=== PATIENT | female | born 1935 | race Caucasian/White ===

== ENCOUNTER 2018-12-09 14:12 | Emergency (ER) | payer MEDICARE, OTHER ==
[~2018-12-09] VITALS: Ht 152.4 cm; Wt 68.2 kg
[~2018-12-09 14:12] MED LIST: CARI350T PO; CITA10TA10 PO; CLOP75TA27 PO; FENO48TA16 PO; FIORICET GTB; GLIM2TAB47 PO; ICNCLON PO; LEFL20TA18 PO; LORA-441 PO; METF-849 PO; NIFE90TA PO; PANT40TA3 PO; PIOG30TA12 PO; PRED5SOL PO; TML25OPG5 OP; ZOLP10TA PO; ranexa PO
[2018-12-09 14:19] VITALS: Ht 152.4 cm; Wt 68.2 kg
[2018-12-09] MEDS ORDERED: SOD CHLORIDE 0.9% 100 ML ONE (16:22)
[2018-12-09] MEDS ORDERED: IODIXANOL LOCM 100 ML BTL ONE (16:22)
[2018-12-09] MEDS ORDERED: SOD CHLORIDE 0.9% 1,000 ML IV ONE (16:30)
[2018-12-09] MEDS ORDERED: GLIM1TAB2 PO (16:38)
[2018-12-09] MEDS ORDERED: CLOP75TA19 PO (16:39)
[2018-12-09] MEDS ORDERED: PIOG30TA71 PO (16:39)
[2018-12-09] MEDS ORDERED: HYDR-3671 PO (16:40)
[2018-12-09] MEDS ORDERED: RANO500T2 PO (16:40)
[2018-12-09] MEDS ORDERED: LOSA100T3 PO (16:41)
[2018-12-09] MEDS ORDERED: NIFE90TA11 PO (16:43)
[2018-12-09] MEDS ORDERED: METO-448 PO (16:44)
[2018-12-09] MEDS ORDERED: PANT40TA3 PO (16:44)
[2018-12-09] MEDS ORDERED: DULO60CA6 PO (16:46)
[2018-12-09] MEDS ORDERED: ATOR40TA68 PO (16:46)
[2018-12-09] MEDS ORDERED: DOXA1TAB PO (16:53)
[2018-12-09] MEDS ORDERED: TYLENOL PM PO (16:57)
--- NOTE | 2018-12-09 18:29 | ERD ---
ER Documentation Chief Complaint Chief Complaint COUGH AND CONGESTION WITH SOB X 3 DAYS HPI This is an 83-year-old female with a past medical history of hypertension, hyperlipidemia, diabetes, right-sided carotid artery stenosis status post recent endarterectomy, and a rehab facility up until approximately 1 week ago who is now presenting with 3 days of productive cough of yellow sputum, chest and nasal congestion and reported shortness of breath. The patient has not had any chest pain or chest tightness or pleuritic pain. She has not had any wheezing, but the family is concerned that sometimes she seems very short of breath. The patient is currently calm and in no distress. She is oxygenating 100% on room air. The patient denies fever or chills. The patient has had no headache or vision changes. The patient does not endorse any new anterior or posterior neck or back pain. The patient denies lightheadedness or dizziness. The patient denies nausea or vomiting. The patient denies abdominal pain. The patient denies changes to bowel movements or urination. The patient has had no focal deficits. The patient has had no weakness or numbness or tingling to the face or extremities. ROS All systems reviewed and are negative except as per history of present illness. Medications Home Meds Reported Medications [Tylenol Pm ] No Conflict Check, 2 TAB PO QHS 12/09/18 Doxazosin Mesylate* (Doxazosin Mesylate*) Unknown Strength Tablet, 1 TAB PO DAILY, TAB 12/09/18 Duloxetine Hcl* (Cymbalta*) 60 Mg Capsule.dr, 60 MG PO DAILY, CAP 12/09/18 Atorvastatin* (Atorvastatin*) 40 Mg Tablet, 40 MG PO QHS, #30 TAB 12/09/18 Pantoprazole* (Protonix*) 40 Mg Tablet.dr, 40 MG PO BID, TAB 12/09/18 Metoprolol Tartrate* (Lopressor*) 25 Mg Tab, 25 MG PO BID, #60 TAB 12/09/18 Nifedipine* (Nifedipine ER*) 90 Mg Tablet.er, 90 MG PO DAILY, TAB 12/09/18 Losartan Potassium* (Cozaar*) 100 Mg Tablet, 100 MG PO DAILY, #30 TAB 12/09/18 Hydralazine Hcl* (Hydralazine Hcl*) 25 Mg Tab, 25 MG PO DAILY, #60 TAB 12/09/18 Ranolazine* (Ranexa*) 500 Mg Tab.sr.12h, 500 MG PO Q12, TAB 12/09/18 Clopidogrel Bisulfate* (Clopidogrel Bisulfate*) 75 Mg Tablet, 75 MG PO DAILY, #30 TAB 12/09/18 Pioglitazone Hcl* (Pioglitazone Hcl*) 30 Mg Tablet, 30 MG PO DAILY, TAB 12/09/18 Glimepiride* (Glimepiride*) 1 Mg Tablet, 1 MG PO WITH BREAKFAST, TAB 12/09/18 Discontinued Reported Medications Prednisone* (Prednisone* Liq) 5 Mg/5 Ml Solution, 5 MG PO 01/11/14 Leflunomide* (Leflunomide*) 20 Mg Tablet, 20 MG PO 01/11/14 Carisoprodol* (Soma*) 350 Mg Tablet, 350 MG PO HS 01/11/14 Timolol Maleate* (Timolol Maleate* Gel) 5 Ml Lis.gel, 5 ML OP 01/11/14 Lorazepam* (Ativan*) 0.5 Mg Tablet, 0.5 MG PO 01/11/14 Zolpidem Tartrate* (Ambien*) 10 Mg Tablet, 10 MG PO 01/11/14 Acetamin/Butalbital/Caffeine* (Fioricet*) 1 Tab Tab, 1 TAB GTB Q6, TAB 01/11/14 Nifedipine* (Procardia XL*) 90 Mg/Bottle Tab.osm.24, 90 MG PO DAILY 01/11/14 Citalopram Hydrobromide* (Celexa*) 10 Mg Tablet, 10 MG PO DAILY 01/11/14 Pioglitazone Hcl* (Actos*) 30 Mg Tablet, 30 MG PO DAILY 01/11/14 Pantoprazole* (Protonix*) 40 Mg Tablet.dr, 40 MG PO DAILY 01/11/14 Metformin* (Glucophage*) 500 Mg Tab, 500 MG PO BID, TAB 01/11/14 Glimepiride* (Amaryl*) 2 Mg Tablet, 2 MG PO BID 01/11/14 Clopidogrel Bisulfate (Clopidogrel) 75 Mg Tablet, 75 MG PO DAILY 01/11/14 Fenofibrate Nanocrystallized* (Tricor*) 48 Mg Tablet, 48 MG PO DAILY 01/11/14 [ranexa] No Conflict Check, 500 MG PO BID 01/11/14 Clonidine (Clonidine (Pediatric Compound)) 0.1 Mg/Ml Susp, 0.2 MG PO BID 01/11/14 [Unknown] No Conflict Check 09/11/09 Allergies Allergies: Coded Allergies: Penicillins (Unverified Allergy, Unknown, RASHES, 12/09/18) PMhx/Soc History of Surgery: No Anesthesia Reaction: No Hx Neurological Disorder: No Hx Respiratory Disorders: No Hx Cardiac Disorders: Yes (Hypertension, hyperlipidemia, diabetes, carotid artery stenosis status post recent endarterectomy 11) Hx Psychiatric Problems: No Hx Miscellaneous Medical Probl: Yes Hx Alcohol Use: No Hx Substance Use: No Hx Tobacco Use: No Smoking Status: Never smoker FmHx Family History: diabetes Physical Exam Vitals Vital Signs Date Temp Pulse Resp B/P (MAP) Pulse Ox O2 O2 Flow FiO2 Time Delivery Rate 12/09/18 Nasal 14:45 Cannula 12/09/18 98.4 64 20 158/52 98 Room Air 14:20 (87) 12/09/18 98.7 70 18 172/60 100 14:19 (97) Physical Exam Const: No apparent distress, well-developed, well-nourished Head: Normocephalic, Atraumatic Eyes: Normal Conjunctiva. Extraocular movements intact. Pupils equal, round and reactive to light ENT: Normal External Ears and Mouth. Nasal congestion is evident. Neck: Full range of motion. No meningismus. Right carotid endarterectomy scar. No thrill on auscultation. Resp: Clear to auscultation bilaterally, No wheezes, rales or rhonchi Cardio: Regular rate and rhythm. No murmurs, rubs or gallops Abd: Soft, non tender, non distended. Normal bowel sounds Skin: No petechiae or rashes Back: No midline tenderness. No CVA tenderness Ext: No cyanosis, or edema Neur: Awake and alert, oriented 4. Cranial nerves intact. No facial droop. Normal strength, sensation and coordination. Psych: Normal Mood and Affect Result Diagram: 12/09/18 1450 12/09/18 1450 Results 24 hrs Laboratory Tests Test 12/09/18 14:50 White Blood Count 9.1 10^3/ul Red Blood Count 3.03 10^6/ul Hemoglobin 9.2 g/dl Hematocrit 29.0 % Mean Corpuscular Volume 95.7 fl Mean Corpuscular Hemoglobin 30.4 pg Mean Corpuscular Hemoglobin Concent 31.7 g/dl Red Cell Distribution Width 14.3 % Platelet Count 311 10^3/UL Mean Platelet Volume 9.8 fl Immature Granulocytes % 1.500 % Neutrophils % 79.7 % Lymphocytes % 10.0 % Monocytes % 7.3 % Eosinophils % 1.1 % Basophils % 0.4 % Nucleated Red Blood Cells % 0.0 /100WBC Immature Granulocytes # 0.140 10^3/ul Neutrophils # 7.3 10^3/ul Lymphocytes # 0.9 10^3/ul Monocytes # 0.7 10^3/ul Eosinophils # 0.1 10^3/ul Basophils # 0.0 10^3/ul Nucleated Red Blood Cells # 0.0 10^3/ul Prothrombin Time 12.7 Sec Prothrombin Time Ratio 1.0 INR International Normalized Ratio 0.94 Sodium Level 139 mmol/L Potassium Level 5.4 mmol/L Chloride Level 107 mmol/L Carbon Dioxide Level 22 mmol/L Anion Gap 10 Blood Urea Nitrogen 38 mg/dl Creatinine 1.87 mg/dl Est Glomerular Filtrat Rate mL/min mL/min Glucose Level 180 mg/dl Calcium Level 9.3 mg/dl Troponin I < 0.012 ng/ml B-Type Natriuretic Peptide 950 PG/ML Current Medications Medications Dose Sig/[place] Start Time Status Last (Trade) Ordered Route PRN Stop Time Admin Dose Reason Admin Sodium 1,000 ml @ Q1H ONCE 12/09/18 DC 12/09/18 Chloride 1,000 mls/hr IV 16:30 17:31 12/09/18 17:29 IV Flush 10 ml STK-MED 12/09/18 DC (NS 10 ml) ONCE .ROUTE 16:22 12/09/18 16:23 Sodium 100 ml @ ud STK-MED 12/09/18 DC Chloride ONCE .ROUTE 16:22 12/09/18 16:23 Iodixanol 100 ml STK-MED 12/09/18 DC (Visipaque ONCE .ROUTE 16:22 Locm) 12/09/18 16:23 Procedures/MDM MDM The patient's presentation warrants further investigation. Previous medical records, if available, were reviewed. LABS The patient's laboratory testing was obtained and reviewed. No emergent treatment was required unless described below. CBC: No E/o systemic infection or thrombocytopenia. Mild normocytic anemia, not emergent. Chemistry: No E/o severe acidosis or alkalosis or diabetic ketoacidosis. Mild hyperkalemia, not emergent. Mildly elevated creatinine indicating mild acute on chronic kidney disease. PT/INR: No E/o significant coagulopathy Troponin: No E/o acute ischemia BNP: In an indeterminate range with no clinical suspicion for heart failure EKG EKG read by me: Rate/Rhythm: Regular rate and rhythm at a rate of 65 bpm Intervals: Normal [place]: Left axis deviation Impression: No evidence of acute ischemia or arrhythmia IMAGING Imaging and Radiology interpretation reviewed. CXR FINDINGS: The heart is enlarged. The thoracic aorta is calcified. The lungs are clear. There is no pleural effusion or pneumothorax. IMPRESSION: Mild cardiomegaly. Calcified aorta consistent with atherosclerotic disease. Electronically viewed and signed by .Dale Curtis MD, MD on 12/09/2018 15:02 CTA soft tissue neck 1. Status post right carotid endarterectomy with surgical clips and mild surrounding infiltration / scarring. Minimal effacement of the adjacent right lateral oropharynx. No associated collection to suggest a phlegmon or abscess. 2. No stenosis at the right carotid bulb. Minimal plaque right common carotid artery plaque without significant stenosis. Tortuous cervical right internal carotid artery. 3. Moderate plaque at the left carotid bulb with approximately 50% diameter stenosis, not hemodynamically significant. 4. Moderate atherosclerotic plaque throughout the aortic arch. 5. Degenerative changes of the cervical spine. 6. Heterogeneous thyroid gland with multiple complex cyst, recommend thyroid ultrasound when clinically appropriate. 7. Small air-fluid level in the right lin sphenoid sinus. Electronically viewed and signed by Jake Rosales MD, MD on 12/09/2018 17:59 TREATMENT/DISPOSITION The patient presents with symptoms most consistent with an upper respiratory infection. There is no evidence of pneumonia. I have low suspicion for influenza. The patient's vital signs are unremarkable. She is oxygenating well. She is afebrile. She is not tachypneic or tachycardic or hypoxic. She has no leukocytosis. I have low suspicion for a systemic infection. I do not feel the patient requires a septic workup. Given the patient's previous history, a cardiac workup was completed to evaluate for any possible etiologies of nasal, throat and chest congestion. The patient did have a recent carotid endarterectomy and I felt that it was necessary to evaluate her neck. The patient does have a mildly elevated creatinine indicating mild acute on chronic kidney disease. I did fluid resuscitate her, but I did feel that the CTA was important to obtain. Fortunately, the CT reveal ed scarring but no obvious soft tissue infection, phlegmon or abscess. I doubt an infection. There is no evidence of an acute postoperative complication. The patient's chest xray does not reveal pneumonia or pneumothorax or pleural effusions or pulmonary edema. The patient does not have a widened mediastinum and does not have signs or symptoms concerning for thoracic aortic aneurysm or dissection. The patient does not have pneumomediastinum or signs concerning for esophageal tear or rupture. The patient has no clinical or radiographic signs of pericardial effusion or tamponade. The patient does not have pneumoperitoneum and I have decreased suspicion of viscus perforation as possible referred pain. The patient's BNP is slightly elevated, but there is no clinical or radiographic evidence concerning for a congestive heart failure exacerbation. This is likely chronic and may be followed up by her doctor.. The patient does not have a diagnosis of COPD and is not wheezing today. The patient is not tachypneic or hypoxic. The patient is breathing comfortably and without pleuritic pain. The patient's symptoms are not consistent with pulmonary embolism PE. The patient's troponin and EKG are reassuring. I have low suspicion for acute coronary syndrome. The patient was treated with IV fluids in the emergency department. Upon reevaluation of the patient, symptoms have improved. No emergent diagnoses were identified. At this time, I feel that the patient stable for discharge. The patient was instructed to follow-up with a primary care physician in 1-3 days. The patient will be given strict precautions with which to return to the emergency department. Prescriptions: Tylenol The patient's blood pressure was elevated at greater than 120/80 while in the emergency department. The patient was otherwise stable with no evidence of hypertensive urgency or emergency. The patient does not require admission for blood pressure control. I have discussed with the patient the risks of hypertension. I have instructed the patient to return to the ER for any new or worsening symptoms including chest pain, shortness of breath, headache, blurred vision, confusion, nausea, vomiting or LOC. I have advised the patient to follow up with the primary care physician for outpatient monitoring and treatment for hypertension in 1-3 days. Disclaimer: Inadvertent spelling and grammatical errors are likely due to EHR/dictation software use and do not reflect on the overall quality of patient care. Note that the electronic time recorded on this note does not necessarily reflect the actual time of the patient encounter. Departure Diagnosis: Primary Impression: URI (upper respiratory infection) URI type: unspecified URI Qualified Codes: J06.9 - Acute upper respiratory infection, unspecified Additional Impressions: Cough Chest congestion Shortness of breath Normocytic anemia Hyperkalemia Acute kidney injury superimposed on chronic kidney disease Condition: Stable Patient Instructions: Cough, Chronic, Uncertain Cause, (Adult), Preventing Common Respiratory Infections Additional Instructions: Thank you for for coming to [facility] for your care today. Pl ease ask your nurse or provider if you have questions about your care today and do not leave until all your questions have been answered. Please use any medications given as directed and follow-up with your doctor (or the doctor you were referred to) in the next 1-3 days. If you do not have a primary care doctor you may follow up at the [facility] or [facility] clinic (listed below). You may also use motrin and tylenol as needed for fever and/or pain unless instructed otherwise by your provider or nurse. Indications for more urgent follow-up have been discussed, but you may return to the Emergency Department at ANY time for any worrisome or worsening symptoms. If you have abdominal pain, please know that no test or exam you received is perfect and you should follow up within 8 hours for continued pain. If you had any imaging studies today, such as an X-Ray or CT Scan, these studies will be reviewed later by a radiologist. You will be called if there are important findings that were not identified today, so make sure the contact information you provided at registration is correct. If you received any narcotic pain control medicine today, such as Vicodin, Morphine or Dilaudid, your coordination and judgment may be affected for a number of hours. Please do not drive or operate heavy machinery, and you may want someone to assist you at home. If you were given a prescription for narcotic medication, be aware that it is very addictive- use sparingly and only if necessary. PLEASE SEEK FURTHER EVALUATION AND MANAGEMENT AT YOUR DOCTORS OFFICE WITHIN THE NEXT 1-3 DAYS. IT IS YOUR RESPONSIBILITY TO MAKE AN APPOINTMENT FOR FOLOW-UP CARE. IF YOU HAVE A PRIMARY DOCTOR, PLEASE CALL THEIR OFFICE TO SCHEDULE AN APPOINTMENT FOR FOLLOW UP. IF YOU DO NOT HAVE A PRIMARY DOCTOR YOU CAN CALL OUR PHYSICIAN REFERRAL HOTLINE AT IF YOU CAN NOT AFFORD TO SEE A PHYSICIAN YOU CAN CHOSE FROM THE FOLLOWING [facility] CLINICS: [facility] [address] [facility] [address] [facility] [address] [facility] [address] [facility] [address] [facility] [address]. [facility]. [address] JAMILAH VIZCAINO MD Dec 09, 2018 18:27
[2018-12-09] MEDS ORDERED: ACET325T33 PO (18:30)
[2018-12-09] MEDS ORDERED: ALBU18HF INHALATION (21:34)
[2018-12-09] MEDS ORDERED: CEPH-443 PO (21:34)
[2018-12-09 22:00] VITALS: BP 174/71; PULSE 88; RESP 16
== END 2018-12-09 22:22 | disposition home or self-care (01) ==
LOC: E/R 14:12
DX: J06.9 Acute upper respiratory infection, unspecified (principal); R09.89 Other specified symptoms and signs involving the circulatory and respiratory systems; R06.02 Shortness of breath; D64.9 Anemia, unspecified; E87.5 Hyperkalemia; N17.9 Acute kidney failure, unspecified; I12.9 Hypertensive chronic kidney disease with stage 1 through stage 4 chronic kidney disease, or unspecified chronic kidney disease; N18.9 Chronic kidney disease, unspecified; E11.22 Type 2 diabetes mellitus with diabetic chronic kidney disease; Z79.84 Long term (current) use of oral hypoglycemic drugs; Z79.01 Long term (current) use of anticoagulants
CPT/HCPCS: 36415; 70498; 71045; 80048; 81003; 83880; 84484; 85025; 85610; 93005; 99285; J7030; Q9967

== ENCOUNTER 2018-12-18 08:34 | Inpatient (IN) | payer OTHER ==
[~2018-12-18] VITALS: Ht 160 cm; Wt 70.0 kg
[~2018-12-18 08:34] MED LIST changes: +ACET325T33 PO; +ALBU18HF INHALATION; +ATOR40TA68 PO; -CARI350T PO; +CEPH-443 PO; -CITA10TA10 PO; +CLOP75TA19 PO; -CLOP75TA27 PO; +DOXA1TAB PO; +DULO60CA6 PO; -FENO48TA16 PO; -FIORICET GTB; +GLIM1TAB2 PO; -GLIM2TAB47 PO; +HYDR-3671 PO; -ICNCLON PO; -LEFL20TA18 PO; -LORA-441 PO; +LOSA100T3 PO; -METF-849 PO; +METO-448 PO; -NIFE90TA PO; +NIFE90TA11 PO; -PIOG30TA12 PO; +PIOG30TA71 PO; -PRED5SOL PO; +RANO500T2 PO; -TML25OPG5 OP; +TYLENOL PM PO; -ZOLP10TA PO; -ranexa PO
--- NOTE | 2018-12-18 08:49 | ERD ---
ER Documentation Chief Complaint Chief Complaint HPI 83-year-old woman brought in by EMS from home for complaints of generalized weak ness, dysuria, chills, burning sensation with urination, and generalized weakness times 2 days. She was recently diagnosed with URI and UTI and prescribed cephalexin although it seems she had an allergic reaction to cephalexin and her antibiotic was switched to Bactrim which she has been using for the last few days without relief of her urinary symptoms. She has had no vomiting or diarrhea, no complaints of chest pain or shortness of breath, no headache or blurry vision. Patient was transported here by EMS without further complication ROS All systems reviewed and are negative except as per history of present illness. Medications Home Meds Active Scripts Albuterol Sulfate* (Ventolin HFA*) 18 Gm Hfa.aer.ad, 2 PUFF INHALATION Q4H, #1 I NHALER Prov:JAMILAH VARNER MD 12/09/18 Acetaminophen* (Tylenol*) 325 Mg Tablet, 1 TAB PO Q6 PRN for PAIN AND OR ELEVATED TEMP, #20 TAB Prov:JAMILAH VARNER MD 12/09/18 Reported Medications Sulfamethoxazole/Trimethoprim* (Bactrim Ds* Tablet) 1 Each Tablet, 1 TAB PO BID, TAB started 12-14-18 for 7 days 12/18/18 [Tylenol Pm ] No Conflict Check, 2 TAB PO QHS 12/09/18 Doxazosin Mesylate* (Doxazosin Mesylate*) Unknown Strength Tablet, 1 TAB PO DAILY, TAB 12/09/18 Duloxetine Hcl* (Cymbalta*) 60 Mg Capsule.dr, 60 MG PO DAILY, CAP 12/09/18 Atorvastatin* (Atorvastatin*) 40 Mg Tablet, 40 MG PO QHS, #30 TAB 12/09/18 Pantoprazole* (Protonix*) 40 Mg Tablet.dr, 40 MG PO BID, TAB 12/09/18 Metoprolol Tartrate* (Lopressor*) 25 Mg Tab, 25 MG PO BID, #60 TAB 12/09/18 Nifedipine* (Nifedipine ER*) 90 Mg Tablet.er, 90 MG PO DAILY, TAB 12/09/18 Losartan Potassium* (Cozaar*) 100 Mg Tablet, 100 MG PO DAILY, #30 TAB 12/09/18 Hydralazine Hcl* (Hydralazine Hcl*) 25 Mg Tab, 25 MG PO DAILY, #60 TAB 12/09/18 Ranolazine* (Ranexa*) 500 Mg Tab.sr.12h, 500 MG PO Q12, TAB 12/09/18 Clopidogrel Bisulfate* (Clopidogrel Bisulfate*) 75 Mg Tablet, 75 MG PO DAILY, #30 TAB 12/09/18 Pioglitazone Hcl* (Pioglitazone Hcl*) 30 Mg Tablet, 30 MG PO DAILY, TAB 12/09/18 Glimepiride* (Glimepiride*) 1 Mg Tablet, 1 MG PO WITH BREAKFAST, TAB 12/09/18 Discontinued Scripts Cephalexin* (Keflex*) 500 Mg Capsule, 500 MG PO BID for 7 Days, CAP Prov:JAMILAH VARNER MD 12/09/18 Allergies Allergies: Coded Allergies: Penicillins (Unverified Allergy, Unknown, RASHES, 12/18/18) cephalexin (Verified Allergy, Unknown, short of breath, 12/18/18) PMhx/Soc history of hypertension, hyperlipidemia, diabetes, right-sided carotid artery stenosis status post endarterectomy, asthma History of Surgery: No Anesthesia Reaction: No Hx Neurological Disorder: No Hx Respiratory Disorders: No Hx Cardiac Disorders: Yes Hx Psychiatric Problems: No Hx Miscellaneous Medical Probl: Yes Hx Alcohol Use: No Hx Substance Use: No Hx Tobacco Use: No FmHx Family History: No diabetes Physical Exam Vitals Vital Signs Date Temp Pulse Resp B/P (MAP) Pulse Ox O2 O2 Flow FiO2 Time Delivery Rate 12/18/18 97.9 100 22 145/99 98 Room Air 10:00 (114) 12/18/18 97.5 91 17 184/90 99 08:40 (121) Per nurse's records Physical Exam Const: No acute distress, afebrile Head: Atraumatic Eyes: Normal Conjunctiva ENT: Dry mucous membranes, normal External Ears, Nose and Mouth. Neck: Full range of motion. No meningismus. Resp: Clear to auscultation bilaterally Cardio: Regular rate and rhythm, no murmurs Abd: Soft, non tender, non distended. Normal bowel sounds Skin: No petechiae or rashes Back: No midline or flank tenderness Ext: No cyanosis, or edema Neur: Awake and alert x3, no focal deficits or facial asymmetry, pupils equal round reactive to light Psych: Normal Mood and Affect Result Diagram: 12/18/1892712/18/18927 Results 24 hrs Laboratory Tests Test 12/18/18 09:27 12/18/18 09:28 Urine Color YELLOW Urine Clarity CLEAR Urine pH 5.0 Urine Specific [place] 1.009 Urine Ketones NEGATIVE mg/dL Urine Nitrite NEGATIVE mg/dL Urine Bilirubin NEGATIVE mg/dL Urine Urobilinogen NEGATIVE mg/dL Urine Leukocyte Esterase NEGATIVE [place]/ul Urine Hemoglobin NEGATIVE mg/dL Urine Glucose NEGATIVE mg/dL Urine Total Protein NEGATIVE mg/dl White Blood Count 8.6 10^3/ul Red Blood Count 2.86 10^6/ul Hemoglobin 8.7 g/dl Hematocrit 28.2 % Mean Corpuscular Volume 98.6 fl Mean Corpuscular Hemoglobin 30.4 pg Mean Corpuscular Hemoglobin Concent 30.9 g/dl Red Cell Distribution Width 14.3 % Platelet Count 434 10^3/UL Mean Platelet Volume 9.2 fl Immature Granulocytes % 5.800 % Neutrophils % 64.1 % Lymphocytes % 16.8 % Monocytes % 9.1 % Eosinophils % 2.8 % Basophils % 1.4 % Nucleated Red Blood Cells % 0.0 /100WBC Immature Granulocytes # 0.500 10^3/ul Neutrophils # 5.5 10^3/ul Lymphocytes # 1.4 10^3/ul Monocytes # 0.8 10^3/ul Eosinophils # 0.2 10^3/ul Basophils # 0.1 10^3/ul Nucleated Red Blood Cells # 0.0 10^3/ul Sodium Level 137 mmol/L Potassium Level 5.0 mmol/L Chloride Level 104 mmol/L Carbon Dioxide Level 19 mmol/L Anion Gap 14 Blood Urea Nitrogen 39 mg/dl Creatinine 2.36 mg/dl Est Glomerular Filtrat Rate mL/min mL/min Glucose Level 99 mg/dl Calcium Level 9.5 mg/dl Total Bilirubin 0.2 mg/dl Direct Bilirubin 0.00 mg/dl Indirect Bilirubin 0.2 mg/dl Aspartate Amino Transf (AST/SGOT) 35 IU/L Alanine Aminotransferase (ALT/SGPT) 16 IU/L Alkaline Phosphatase 74 IU/L Troponin I 0.019 ng/ml Total Protein 7.6 g/dl Albumin 3.8 g/dl Globulin 3.80 g/dl Albumin/Globulin Ratio 1.00 Lipase 109 U/L Current Medications Medications Dose Sig/[place] Start Time Status Last (Trade) Ordered Route PRN Stop Time Admin Dose Reason Admin Sodium 1,000 ml @ Q1H STAT 12/18/18 DC 12/18/18 Chloride 1,000 mls/hr IV 08:51 10:25 12/18/18 09:50 Ondansetron 4 mg ONCE STAT 12/18/18 DC 12/18/18 HCl (Zofran IV 08:51 10:25 Inj) 12/18/18 09:12 Ketorolac 15 mg ONCE STAT 12/18/18 DC 12/18/18 Tromethamine IV 08:51 10:25 (Toradol) 12/18/18 09:12 Procedures/MDM IV line was established patient was placed on band presser rhythm strip revealed a sinus rhythm at about 90 bpm with upright P and T waves. Patient was afebrile, blood and urine cultures have been ordered results are pending I will follow-up. I administered 1 L normal saline IV, Toradol 15 mg IV, Zofran 4 mg IV EKG performed, read by me revealed a normal sinus rhythm at 90 bpm, normal axis, narrow QRS complex, no concerning ST elevations or depressions noted CBC does reveal anemia with a hemoglobin of 8.7 although this is pretty much her baseline, electrolytes revealed dehydration and acute kidney injury with a creatinine of 2.4, this is about 30% rise compared to her last creatinine level. Liver function tests were normal, troponin was negative, urinalysis was negative for infection. Unfortunately patient developed acute kidney injury and dehydration after antibiotic use for UTI and has complaints of dizziness and generalized weakness. She will be admitted to [facility] for continued medical management and possible nephrology consultation. Departure Diagnosis: Primary Impression: Dysuria Additional Impressions: Dehydration Hypertension Hypertension type: essential hypertension Qualified Codes: I10 - Essential (primary) hypertension Acute kidney injury Condition: ZABRINA Armenta MD Dec 18, 2018 08:49
[2018-12-18] MEDS ORDERED: SOD CHLORIDE 0.9% 1,000 ML IV STA (08:51)
[2018-12-18] MEDS ORDERED: KETOROLAC 15 MG INJ IV STA (08:51)
[2018-12-18] MEDS ORDERED: ONDANSETRON 4 MG INJ IV STA (08:51)
[2018-12-18] MEDS ORDERED: SULF1TAB31 PO (09:34)
[2018-12-18] MEDS ORDERED: NACL 0.9% 3 ML SYG IV SCH (12:30)
[2018-12-18] MEDS: ONDANSETRON 4 MG INJ IV PRN ×2 (14:14→21:17)
[2018-12-18] MEDS: morphine 2 MG INJ IV PRN ×2 (14:25→21:24)
[2018-12-18] MEDS: POLYETHYLENE GLYCOL 17 GM PACKET PO SCH ×2 (14:40→21:51)
--- NOTE | 2018-12-18 18:27 | HP ---
Date/Time of Note Date/Time of Note DATE: 12/18/18 TIME: 18:14 Assessment/Plan VTE Prophylaxis Pharmacological prophylaxis: heparin Lines/Catheters IV Catheter Type (from Nrsg): Saline Lock Assessment/Plan Hospital Course 83 yo female with h/o CEA, CKD II, hypertension who presents with vague sypmtoms of nausea and feeling unwell No clear unifying diagonsis. - She is in very mild ANGEL which I assume is prerenal. - CT shows constipation which may explain her nausea - Certainly polypharmacy may be causing this presentation - Will provide symptomatic care for now - Hold non-essential home medications Result Diagram: 12/18/1892712/18/18927 Results 24hrs Laboratory Tests Test 12/18/18 09:27 12/18/18 09:28 12/18/18 14:07 12/18/18 16:50 Urine Color YELLOW Urine Clarity CLEAR Urine pH 5.0 Urine Specific 1.009 [place] Urine Ketones NEGATIVE Urine Nitrite NEGATIVE Urine Bilirubin NEGATIVE Urine Urobilinogen NEGATIVE Urine Leukocyte NEGATIVE Esterase Urine Hemoglobin NEGATIVE Urine Glucose NEGATIVE Urine Total Protein NEGATIVE White Blood Count 8.6 Red Blood Count 2.86 L Hemoglobin 8.7 L Hematocrit 28.2 L Mean Corpuscular 98.6 Volume Mean Corpuscular 30.4 Hemoglobin Mean Corpuscular 30.9 L Hemoglobin Concent Red Cell 14.3 Distribution Width Platelet Count 434 #H Mean Platelet Volume 9.2 Immature 5.800 H Granulocytes % Neutrophils % 64.1 Lymphocytes % 16.8 Monocytes % 9.1 Eosinophils % 2.8 Basophils % 1.4 Nucleated Red Blood 0.0 Cells % Immature 0.500 H Granulocytes # Neutrophils # 5.5 Lymphocytes # 1.4 Monocytes # 0.8 Eosinophils # 0.2 Basophils # 0.1 Nucleated Red Blood 0.0 Cells # Sodium Level 137 Potassium Level 5.0 Chloride Level 104 Carbon Dioxide Level 19 L Anion Gap 14 H Blood Urea Nitrogen 39 H Creatinine 2.36 H Est Glomerular Filtrat Rate mL/min Glucose Level 99 Calcium Level 9.5 Total Bilirubin 0.2 Direct Bilirubin 0.00 Indirect Bilirubin 0.2 Aspartate Amino 35 Transf (AST/SGOT) Alanine 16 Aminotransferase (AL T/SGPT) Alkaline Phosphatase 74 Troponin I 0.019 0.031 Total Protein 7.6 Albumin 3.8 Globulin 3.80 H Albumin/Globulin 1.00 Ratio Lipase 109 Bedside Glucose 129 HPI/ROS Admit Date/Time Admit Date/Time Hx of Present Illness 83 yo female with CKD, depression, hypertension, CAD who presents with nausea and malaise Patient is a difficult historian and it is hard for me to ellicit her exact symptoms. Keeps telling me she just "doesn't feel well" but can't really point to anything specific. She had a CEA last month then was discharged to a rehab facility. She has been home for past week or so. Since then she has been treated for UTI for dysuria with bactrim and keflex by her PMD in past week. Denies any dysuria now. No fevers. She does feel nausea and has had little PO intake. Denies vomiting or diarrhea. Denies abdominal pain. Does feel a bit short of breath. No chest pain. No cough. PMH/Family/Social Past Medical History Medical History: coronary artery disease, hypertension, renal disease Medications Current Medications IV Flush (NS 3 ml) 3 ml PER PROTOCOL IV ; Start 12/18/18 at 12:30 Ondansetron HCl (Zofran Inj) 4 mg Q6H PRN IV NAUSEA/VOMITING Last administered on 12/18/18at 14:14; Admin Dose 4 MG; Start 12/18/18 at 12:30 Morphine Sulfate (morphine) 2 mg Q4H PRN IV .SEVERE PAIN 7-10 Last administered on 12/18/18at 14:25; Admin Dose 2 MG; Start 12/18/18 at 12:30 Heparin Sodium (Porcine) (Heparin (5000 Units/1ml)) 5,000 unit Q12 SC ; Start 12/18/18 at 21:00 Clopidogrel Bisulfate (plaVIX) 75 mg DAILY PO ; Start 12/19/18 at 09:00 Duloxetine HCl (Cymbalta) 60 mg DAILY PO ; Start 12/19/18 at 09:00 Metoprolol Tartrate (Lopressor) 25 mg BID PO ; Start 12/18/18 at 21:00 Polyethylene Glycol (Miralax) 17 gm BID PO Last administered on 12/18/18at 14:40; Admin Dose 17 GM; Start 12/18/18 at 14:00 Coded Allergies: Penicillins (Unverified Allergy, Unknown, RASHES, 12/18/18) cephalexin (Verified Allergy, Unknown, short of breath, 12/18/18) Past Surgical History CEA Social History Alcohol Use: none Smoking Status: Never smoker Drug Use: none Exam/Review of Systems Vital Signs Vitals Vital Signs Date Temp Pulse Resp B/P (MAP) Pulse Ox O2 O2 Flow FiO2 Time Delivery Rate 12/18/18 98.2 97 16 187/71 96 Room Air 17:38 (109) Exam Exam Appears to be rigoring AOx3 Breathing comfortably RRR Abdomen is soft nt nd Ext warm without edema NANCI GUTIERREZ MD Dec 18, 2018 18:24
[2018-12-18] MEDS ORDERED: DEXTROSE 50% 50 ML SYRINGE IV PRN ×2 (19:00)
[2018-12-18] MEDS ORDERED: GLUCOSE GEL 15 GRAM TUBE BUCCAL PRN (19:00)
[2018-12-18] MEDS ORDERED: GLUCAGON 1 MG INJ IM PRN (19:00)
[2018-12-18] MEDS ORDERED: LABETALOL HCL 20MG INJ IV ONE (19:00)
[2018-12-18] MEDS ORDERED: GLUCOSE GEL 15 GRAM TUBE PO PRN ×2 (19:00)
[2018-12-18] MEDS: INSULIN GLARGINE [LANTus] (100 UNITS/ML) SYG SC SCH (20:00)
[2018-12-18] MEDS: METOPROLOL 25 MG TAB PO SCH (21:51)
[2018-12-18] MEDS: HEPARIN 5,000 UNIT/1 ML VIAL SC SCH (21:53)
[2018-12-18] MEDS ORDERED: LORAZEPAM 2 MG INJ IV STA (22:46)
[2018-12-18] MEDS ORDERED: ALPRAZOLAM 0.25 MG TAB PO ONE (23:00)
[2018-12-18] MEDS ORDERED: ALPRAZOLAM 0.5 MG TAB PO ONE (23:00)
[2018-12-19] VITALS (8 sets, daily range): BP systolic 105–216; BP diastolic 55–95; PULSE 67–92; RESP 16–19; Ht 160 cm; Wt 70.0 kg
[2018-12-19] MEDS: CLOPIDOGREL 75 MG TAB PO SCH (08:55)
[2018-12-19] MEDS: DULOXETINE 30 MG CAP DR PO SCH (08:55)
[2018-12-19] MEDS: Insulin NOVOLOG SS MILD Algorithm (SS with meals and bedtime) SC SCH ×4 (08:55→21:10)
[2018-12-19] MEDS: METOPROLOL 25 MG TAB PO SCH ×2 (08:56→21:08)
[2018-12-19] MEDS: POLYETHYLENE GLYCOL 17 GM PACKET PO SCH ×2 (08:56→21:05)
[2018-12-19] MEDS: INSULIN ASPART [NOVOLOG] 3 ML PEN SC SCH ×3 (08:58→17:50)
[2018-12-19] MEDS: HEPARIN 5,000 UNIT/1 ML VIAL SC SCH ×2 (08:59→21:10)
--- NOTE | 2018-12-19 17:14 | PN ---
Date/Time of Note Date/Time of Note DATE: 12/19/18 TIME: 17:13 Assessment/Plan VTE Prophylaxis Risk score (from Ns)>0 risk: 7 SCD applied (from Ns): Yes Pharmacological prophylaxis: heparin Lines/Catheters IV Catheter Type (from Nrs): Saline Lock Assessment/Plan Hospital Course 83 yo female with h/o CEA, CKD II, hypertension who presents with vague sypmtoms of nausea and feeling unwell No clear unifying diagnosis, but symptoms have resolved - Certainly polypharmacy may be causing this presentation ANGEL: - She is in very mild ANGEL which I assume is prerenal, now back to baseline Constipation: - CT shows constipation which may explain her nausea Hypertension: - Home meds at discharge Knee pain 11/03 OA: - Continue symptomatic care Discharge to home tomorrow Result Diagram: 12/19/18 1215 12/19/18 1215 Results 24hrs Laboratory Tests Test 12/18/18 19:37 12/19/18 04:52 12/19/18 08:53 12/19/18 12:15 Bedside Glucose 110 79 White Blood Count 7.9 8.4 Red Blood Count 2.65 L 3.15 L Hemoglobin 8.1 L 9.5 L Hematocrit 25.6 L 30.3 L Mean Corpuscular 96.6 96.2 Volume Mean Corpuscular 30.6 30.2 Hemoglobin Mean Corpuscular 31.6 L 31.4 L Hemoglobin Concent Red Cell 14.4 14.3 Distribution Width Platelet Count 378 448 H Mean Platelet Volume 9.1 8.9 Immature 5.700 H 4.300 H Granulocytes % Neutrophils % 66.1 Segmented 69 Neutrophils % (Manual) Lymphocytes % 17.3 Lymphocytes % 21 (Manual) Monocytes % 8.8 Monocytes % (Manual) 6 Eosinophils % 1.9 Eosinophils % 2 (Manual) Basophils % 1.6 Metamyelocytes % 1 H (manual) Myelocytes % 1 H (Manual) Nucleated Red Blood 0.0 0.0 Cells % Immature 0.450 H 0.360 H Granulocytes # Neutrophils # 5.5 Lymphocytes (Manual) 1.6 Lymphocytes # 1.5 Monocytes # 0.7 Monocytes # (Manual) 0.4 Eosinophils # 0.2 Basophils # 0.1 Metamyelocytes # 0.0 Myelocytes # 0.0 Nucleated Red Blood 0.0 Cells # Platelet Estimate NORMAL Giant Platelets 2 H Polychromasia 1+ Poikilocytosis 1+ Macrocytosis 1+ Ovalocytes 1+ Sodium Level 139 138 Potassium Level 5.3 H 5.5 H Chloride Level 106 108 Carbon Dioxide Level 20 L 21 Anion Gap 13 9 Blood Urea Nitrogen 30 H 28 H Creatinine 1.90 H 1.80 H Est Glomerular Filtrat Rate mL/min Glucose Level 78 122 # Hemoglobin A1c 6.8 H Calcium Level 9.2 9.7 Total Bilirubin 0.1 L Direct Bilirubin 0.00 Indirect Bilirubin 0.1 Aspartate Amino 31 Transf (AST/SGOT) Alanine 19 Aminotransferase (AL T/SGPT) Alkaline Phosphatase 78 Total Protein 6.6 # Albumin 3.3 Globulin 3.30 H Albumin/Globulin 1.00 Ratio Thyroid Stimulating 1.570 Hormone (TSH) Test 12/19/18 12:35 Bedside Glucose 128 Subjective 24 Hr Interval Summary Free Text/Dictation Symptoms resolved today aside from R knee pain Having very labile blood pressures Exam/Review of Systems Exam Vitals Vital Signs Date Temp Pulse Resp B/P (MAP) Pulse Ox O2 O2 Flow FiO2 Time Delivery Rate 12/19/18 98.6 82 18 130/58 98 16:00 (82) 12/19/18 Nasal 2.0 08:45 Cannula Constitutional: alert, oriented, well developed Psych: no complaints, nl mood/affect Head: normocephalic, atraumatic Eyes: nl conjunctiva, EOMI, nl lids, nl sclera, PERRL ENMT: nl external ears & nose, nl lips & teeth, nl nasal mucosa & septum Neck: supple, non-tender Respiratory: clear to auscultation, normal air movement Cardiovascular: regular rate and rhythm, nl pulses Gastrointestinal: soft, nl liver, spleen, non-tender Musculoskeletal: nl extremities to inspection, nl gait and stance Extremities: normal pulses Neurological: PERSONAL FINANCIAL REPRESENTATIVE II-XII intact, nl mental status, nl speech, nl strength Skin: nl turgor; No rash or lesions Lymph: nl lymph nodes Results Results 24hrs Laboratory Tests Test 12/18/18 19:37 12/19/18 04:52 12/19/18 08:53 12/19/18 12:15 Bedside Glucose 110 79 White Blood Count 7.9 8.4 Red Blood Count 2.65 L 3.15 L Hemoglobin 8.1 L 9.5 L Hematocrit 25.6 L 30.3 L Mean Corpuscular 96.6 96.2 Volume Mean Corpuscular 30.6 30.2 Hemoglobin Mean Corpuscular 31.6 L 31.4 L Hemoglobin Concent Red Cell 14.4 14.3 Distribution Width Platelet Count 378 448 H Mean Platelet Volume 9.1 8.9 Immature 5.700 H 4.300 H Granulocytes % Neutrophils % 66.1 Segmented 69 Neutrophils % (Manual) Lymphocytes % 17.3 Lymphocytes % 21 (Manual) Monocytes % 8.8 Monocytes % (Manual) 6 Eosinophils % 1.9 Eosinophils % 2 (Manual) Basophils % 1.6 Metamyelocytes % 1 H (manual) Myelocytes % 1 H (Manual) Nucleated Red Blood 0.0 0.0 Cells % Immature 0.450 H 0.360 H Granulocytes # Neutrophils # 5.5 Lymphocytes (Manual) 1.6 Lymphocytes # 1.5 Monocytes # 0.7 Monocytes # (Manual) 0.4 Eosinophils # 0.2 Basophils # 0.1 Metamyelocytes # 0.0 Myelocytes # 0.0 Nucleated Red Blood 0.0 Cells # Platelet Estimate NORMAL Giant Platelets 2 H Polychromasia 1+ Poikilocytosis 1+ Macrocytosis 1+ Ovalocytes 1+ Sodium Level 139 138 Potassium Level 5.3 H 5.5 H Chloride Level 106 108 Carbon Dioxide Level 20 L 21 Anion Gap 13 9 Blood Urea Nitrogen 30 H 28 H Creatinine 1.90 H 1.80 H Est Glomerular Filtrat Rate mL/min Glucose Level 78 122 # Hemoglobin A1c 6.8 H Calcium Level 9.2 9.7 Total Bilirubin 0.1 L Direct Bilirubin 0.00 Indirect Bilirubin 0.1 Aspartate Amino 31 Transf (AST/SGOT) Alanine 19 Aminotransferase (AL T/SGPT) Alkaline Phosphatase 78 Total Protein 6.6 # Albumin 3.3 Globulin 3.30 H Albumin/Globulin 1.00 Ratio Thyroid Stimulating 1.570 Hormone (TSH) Test 12/19/18 12:35 Bedside Glucose 128 Medications Medication Current Medications IV Flush (NS 3 ml) 3 ml PER PROTOCOL IV ; Start 12/18/18 at 12:30 Ondansetron HCl (Zofran Inj) 4 mg Q6H PRN IV NAUSEA/VOMITING Last administered on 12/18/18at 21:17; Admin Dose 4 MG; Start 12/18/18 at 12:30 Morphine Sulfate (morphine) 2 mg Q4H PRN IV .SEVERE PAIN 7-10 Last administered on 12/18/18 21:24; Admin Dose 2 MG; Start 12/18/18 at 12:30 Heparin Sodium (Porcine) (Heparin (5000 Units/1ml)) 5,000 unit Q12 SC Last administered on 12/19/18 08:59; Admin Dose 5,000 UNIT; Start 12/18/18 at 21:00 Clopidogrel Bisulfate (plaVIX) 75 mg DAILY PO Last administered on 12/19/18 08:55; Admin Dose 75 MG; Start 12/19/18 at 09:00 Duloxetine HCl (Cymbalta) 60 mg DAILY PO Last administered on 12/19/18 08:55; Admin Dose 60 MG; Start 12/19/18 at 09:00 Metoprolol Tartrate (Lopressor) 25 mg BID PO Last administered on 12/19/18 08:56; Admin Dose 25 MG; Start 12/18/18 at 21:00 Polyethylene Glycol (Miralax) 17 gm BID PO Last administered on 12/19/18 08:56; Admin Dose 17 GM; Start 12/18/18 at 14:00 Insulin Glargine (Lantus) 11 units DAILY@2000 SC ; Start 12/18/18 at 20:00 Insulin Aspart (Novolog Insulin Pen) 5 unit WITH MEALS SC Last administered on 12/19/18at 12:40; Admin Dose 5 UNIT; Start 12/19/18 at 07:50 Miscellaneous Information 1 ea NOTE XX ; Start 12/18/18 at 19:00 Glucose (Glutose) 15 gm Q15M PRN PO DECREASED GLUCOSE; Start 12/18/18 at 19:00 Glucose (Glutose) 22.5 gm Q15M PRN PO DECREASED GLUCOSE; Start 12/18/18 at 19:00 Dextrose (D50w Syringe) 25 ml Q15M PRN IV DECREASED GLUCOSE; Start 12/18/18 at 19:00 Dextrose (D50w Syringe) 50 ml Q15M PRN IV DECREASED GLUCOSE; Start 12/18/18 at 19:00 Glucagon (Glucagen) 1 mg Q15M PRN IM DECREASED GLUCOSE; Start 12/18/18 at 19:00 Glucose (Glutose) 15 gm Q15M PRN BUCCAL DECREASED GLUCOSE; Start 12/18/18 at 19:00 Insulin Aspart (Novolog Insulin Pen) (Adult SC Insulin - Mild Algorithm)... AC MEALS AND BEDTIME SC ; Start 12/19/18 at 07:20 NANCI GUTIERREZ MD Dec 19, 2018 17:14
[2018-12-19] MEDS ORDERED: LORAZEPAM 1 MG TAB PO ONE (19:00)
[2018-12-19] MEDS: INSULIN GLARGINE [LANTus] (100 UNITS/ML) SYG SC SCH (21:10)
[2018-12-19] MEDS ORDERED: VITAMIN A & D 5 GM OINT PACKET TOP PRN (22:30)
[2018-12-19] MEDS: morphine 2 MG INJ IV PRN (22:54)
[2018-12-20] MEDS: morphine 2 MG INJ IV PRN (03:09)
[2018-12-20] MEDS ORDERED: BISACODYL (EC) 5 MG TAB PO PRN (04:00)
[2018-12-20] MEDS: DOCUSATE SODIUM 100 MG CAP PO PRN ×2 (04:33→20:17)
[2018-12-20] MEDS: SENNA TAB PO PRN ×2 (04:34→20:17)
[2018-12-20] MEDS: METOPROLOL 25 MG TAB PO SCH ×2 (07:28→20:17)
[2018-12-20 07:44] VITALS: BP 152/68; PULSE 66; RESP 19
[2018-12-20] MEDS: Insulin NOVOLOG SS MILD Algorithm (SS with meals and bedtime) SC SCH ×4 (08:30→20:14)
[2018-12-20] MEDS: INSULIN ASPART [NOVOLOG] 3 ML PEN SC SCH ×3 (09:26→18:31)
[2018-12-20] MEDS: POLYETHYLENE GLYCOL 17 GM PACKET PO SCH ×2 (09:26→20:17)
[2018-12-20] MEDS: CLOPIDOGREL 75 MG TAB PO SCH (09:27)
[2018-12-20] MEDS: DULOXETINE 30 MG CAP DR PO SCH (09:27)
[2018-12-20] MEDS: HEPARIN 5,000 UNIT/1 ML VIAL SC SCH ×2 (09:27→20:22)
--- NOTE | 2018-12-20 12:33 | PDOCDIS ---
Discharge Instructions DIAGNOSIS Discharge Diagnosis Nausea ANGEL CONDITION [id number] Patient Condition: [id number] Stable FOLLOW UP/APPOINTMENTS Follow-up Plan I think it would be a good idea to scale back some of your medications. Please see the list I have provided you and discuss these changes with your doctor. I think some of your sypmtoms may be caused by medications, particularly your severe constipation NANCI GUTIERREZ MD Dec 20, 2018 12:33
--- NOTE | 2018-12-20 12:41 | DS ---
Date/Time of Note Date/Time of Note DATE: 12/20/18 TIME: 12:40 Discharge Summary Admission/Discharge Info Admit Date/Time Dec 18, 2018 at 11:13 Discharge Date/Time Discharge Diagnosis Nausea ANGEL Patient Condition: Stable Hx of Present Illness 83 yo female with CKD, depression, hypertension, CAD who presents with nausea and malaise Patient is a difficult historian and it is hard for me to ellicit her exact symptoms. Keeps telling me she just "doesn't feel well" but can't really point to anything specific. She had a CEA last month then was discharged to a rehab facility. She has been home for past week or so. Since then she has been treated for UTI for dysuria with bactrim and keflex by her PMD in past week. Denies any dysuria now. No fevers. She does feel nausea and has had little PO intake. Denies vomiting or diarrhea. Denies abdominal pain. Does feel a bit short of breath. No chest pain. No cough. Hospital Course 83 yo female with h/o CEA, CKD II, hypertension who presents with vague sypmtoms of nausea and feeling unwell No clear unifying diagnosis. CT of the abdomen revealed constipation. Laxatives were given. Symptosm resolved. She was given a liter of NS and her ANGEL resolved. I held some of her blood pressure medications and she remained normotnesive. I suspect some of her meds are causing her symptoms and suggested she talk about this with her primary doctor. Home Meds Active Scripts Albuterol Sulfate* (Ventolin HFA*) 18 Gm Hfa.aer.ad, 2 PUFF INHALATION Q4H, #1 INHALER Prov:JAMILAH VARNER MD 12/09/18 Acetaminophen* (Tylenol*) 325 Mg Tablet, 1 TAB PO Q6 PRN for PAIN AND OR ELEVATED TEMP, #20 TAB Prov:JAMILAH VARNER MD 12/09/18 Reported Medications Sulfamethoxazole/Trimethoprim* (Bactrim Ds* Tablet) 1 Each Tablet, 1 TAB PO BID, TAB started 12-14-18 for 7 days 12/18/18 [Tylenol Pm ] No Conflict Check, 2 TAB PO QHS 12/09/18 Doxazosin Mesylate* (Doxazosin Mesylate*) Unknown Strength Tablet, 1 TAB PO DAILY, TAB 12/09/18 Duloxetine Hcl* (Cymbalta*) 60 Mg Capsule.dr, 60 MG PO DAILY, CAP 12/09/18 Atorvastatin* (Atorvastatin*) 40 Mg Tablet, 40 MG PO QHS, #30 TAB 12/09/18 Pantoprazole* (Protonix*) 40 Mg Tablet.dr, 40 MG PO BID, TAB 12/09/18 Metoprolol Tartrate* (Lopressor*) 25 Mg Tab, 25 MG PO BID, #60 TAB 12/09/18 Nifedipine* (Nifedipine ER*) 90 Mg Tablet.er, 90 MG PO DAILY, TAB 12/09/18 Losartan Potassium* (Cozaar*) 100 Mg Tablet, 100 MG PO DAILY, #30 TAB 12/09/18 Hydralazine Hcl* (Hydralazine Hcl*) 25 Mg Tab, 25 MG PO DAILY, #60 TAB 12/09/18 Ranolazine* (Ranexa*) 500 Mg Tab.sr.12h, 500 MG PO Q12, TAB 12/09/18 Clopidogrel Bisulfate* (Clopidogrel Bisulfate*) 75 Mg Tablet, 75 MG PO DAILY, #30 TAB 12/09/18 Pioglitazone Hcl* (Pioglitazone Hcl*) 30 Mg Tablet, 30 MG PO DAILY, TAB 12/09/18 Glimepiride* (Glimepiride*) 1 Mg Tablet, 1 MG PO WITH BREAKFAST, TAB 12/09/18 Discontinued Scripts Cephalexin* (Keflex*) 500 Mg Capsule, 500 MG PO BID for 7 Days, CAP Prov:JAMILAH VARNER MD 12/09/18 Follow-up Plan I think it would be a good idea to scale back some of your medications. Please see the list I have provided you and discuss these changes with your doctor. I think some of your sypmtoms may be caused by medications, particularly your severe constipation Primary Care Provider Not On Staff Doctor Pending Labs Laboratory Tests Test 12/19/18 17:48 12/19/18 21:04 12/20/18 08:48 Bedside Glucose 259 mg/dL (70-220) 193 mg/dL (70-220) 61 mg/dL (70-220) NANCI GUTIERREZ MD Dec 20, 2018 12:41
[2018-12-20 13:44] VITALS: BP 132/58; PULSE 64; RESP 19
[2018-12-20] MEDS ORDERED: LORAZEPAM 1 MG TAB PO PRN (18:00)
[2018-12-20 20:30] VITALS: BP 138/63; PULSE 72; RESP 18
[2018-12-21] MEDS: DOCUSATE SODIUM 100 MG CAP PO PRN (04:41)
[2018-12-21] MEDS: SENNA TAB PO PRN (04:41)
[2018-12-21] MEDS ORDERED: hydrALAzine 20 MG INJ IV PRN (05:00)
[2018-12-21] MEDS: morphine 2 MG INJ IV PRN (06:55)
[2018-12-21] MEDS ORDERED: LORAZEPAM 2 MG INJ IV STA (07:05)
[2018-12-21 07:32] VITALS: BP 131/56; PULSE 68; RESP 19
[2018-12-21] MEDS: POLYETHYLENE GLYCOL 17 GM PACKET PO SCH (09:00)
[2018-12-21] MEDS: Insulin NOVOLOG SS MILD Algorithm (SS with meals and bedtime) SC SCH ×2 (09:26→11:10)
[2018-12-21] MEDS: HEPARIN 5,000 UNIT/1 ML VIAL SC SCH (09:28)
[2018-12-21] MEDS: CLOPIDOGREL 75 MG TAB PO SCH (09:30)
[2018-12-21] MEDS: INSULIN ASPART [NOVOLOG] 3 ML PEN SC SCH ×2 (09:30→12:55)
[2018-12-21] MEDS: DULOXETINE 30 MG CAP DR PO SCH (09:31)
[2018-12-21] MEDS: METOPROLOL 25 MG TAB PO SCH (09:41)
[2018-12-21 14:18] VITALS: BP 136/62; PULSE 88; RESP 18
== END 2018-12-21 15:15 | disposition home or self-care (01) | DRG 684 ==
LOC: E/R 08:34 → MS1 11:13 → CANRESERV 18:24
PROVIDERS: ADMIT Internal Medicine; ATTEND Internal Medicine
DX: N17.9 Acute kidney failure, unspecified (principal); I12.9 Hypertensive chronic kidney disease with stage 1 through stage 4 chronic kidney disease, or unspecified chronic kidney disease; N18.2 Chronic kidney disease, stage 2 (mild); K59.00 Constipation, unspecified; R11.0 Nausea; I25.10 Atherosclerotic heart disease of native coronary artery without angina pectoris; M17.10 Unilateral primary osteoarthritis, unspecified knee
CPT/HCPCS: 36415; 71045; 74176; 80048; 80053; 81003; 82962; 83036; 83690; 84443; 84484; 85025; 87040; 87086; 93005; 96374; 96375; A4310; J0360; J1644; J1815; J1885; J2060; J2270; J2405; J7030

== ENCOUNTER 2018-12-22 02:47 | Inpatient (IN) | payer OTHER ==
[~2018-12-22] VITALS: Ht 157.5 cm; Wt 84.0 kg
[~2018-12-22 02:47] MED LIST changes: -ATOR40TA68 PO; -CEPH-443 PO; -DOXA1TAB PO; -HYDR-3671 PO; -METO-448 PO; -NIFE90TA11 PO
[2018-12-22] MEDS ORDERED: SOD CHLORIDE 0.9% 1,000 ML IV STA (02:51)
[2018-12-22] MEDS ORDERED: IODIXANOL LOCM 100 ML BTL ONE (02:59)
[2018-12-22] MEDS ORDERED: SOD CHLORIDE 0.9% 100 ML ONE (02:59)
[2018-12-22] MEDS ORDERED: LORAZEPAM 2 MG INJ IV ONE (03:00)
[2018-12-22] MEDS ORDERED: NA BICARBONATE 8.4% 50 ML SYG IV STA (03:41)
[2018-12-22] MEDS ORDERED: SODIUM POLYSTYRENE 15 GM KIT (POWDER + SORBITOL) PO STA (03:41)
[2018-12-22] MEDS ORDERED: NA POLYST SULFON 15 GM/60 ML BTL PO ONE (03:50)
[2018-12-22] MEDS ORDERED: CALCIUM GLUCONATE 10% 1 GM in DEXTROSE 5% 100 ML IVPB ONE (04:00)
[2018-12-22] MEDS ORDERED: ALBUTEROL HFA 8 GM INHALER INH SCH (05:45)
[2018-12-22] MEDS ORDERED: SOD CHLORIDE 0.9% 1,000 ML IV SCH (05:46)
[2018-12-22] MEDS ORDERED: NACL 0.9% 3 ML SYG IV SCH (06:00)
[2018-12-22] MEDS ORDERED: ONDANSETRON 4 MG INJ IV PRN (06:00)
[2018-12-22] MEDS ORDERED: ACETAMINOPHEN 325 MG TAB PO PRN (06:00)
--- NOTE | 2018-12-22 06:22 | ERD ---
ER Documentation Chief Complaint Chief Complaint SOB FROM HOME. HX OF ANXIETY. HPI 83-year-old female who presents for shortness of breath via EMS. Patient had a recent hospitalization for similar symptoms, mild renal insufficiency and shortness of breath that was deemed to be consistent with anxiety. The patient was started on benzodiazepines with improvement. The patient presents with similar symptoms. She was only discharged within the past 24 hours. Patient denies any chest pain or pressure, no pleuritic pain. The patient denies any significant lower extremity swelling or unilateral swelling. The patient is extremely anxious. ROS All systems reviewed and are negative except as per history of present illness. Medications Home Meds Active Scripts Albuterol Sulfate* (Ventolin HFA*) 18 Gm Hfa.aer.ad, 2 PUFF INHALATION Q4H, #1 INHALER Prov:JAMILAH VARNER MD 12/09/18 Acetaminophen* (Tylenol*) 325 Mg Tablet, 1 TAB PO Q6 PRN for PAIN AND OR ELEVATED TEMP, #20 TAB Prov:JAMILAH VARNER MD 12/09/18 Reported Medications [Tylenol Pm ] No Conflict Check, 2 TAB PO QHS 12/09/18 Duloxetine Hcl* (Cymbalta*) 60 Mg Capsule.dr, 60 MG PO DAILY, CAP 12/09/18 Pantoprazole* (Protonix*) 40 Mg Tablet.dr, 40 MG PO BID, TAB 12/09/18 Losartan Potassium* (Cozaar*) 100 Mg Tablet, 100 MG PO DAILY, #30 TAB 12/09/18 Ranolazine* (Ranexa*) 500 Mg Tab.sr.12h, 500 MG PO Q12, TAB 12/09/18 Clopidogrel Bisulfate* (Clopidogrel Bisulfate*) 75 Mg Tablet, 75 MG PO DAILY, #30 TAB 12/09/18 Pioglitazone Hcl* (Pioglitazone Hcl*) 30 Mg Tablet, 30 MG PO DAILY, TAB 12/09/18 Glimepiride* (Glimepiride*) 1 Mg Tablet, 1 MG PO WITH BREAKFAST, TAB 12/09/18 Discontinued Reported Medications Sulfamethoxazole/Trimethoprim* (Bactrim Ds* Tablet) 1 Each Tablet, 1 TAB PO BID, TAB started 12-14-18 for 7 days 12/18/18 Doxazosin Mesylate* (Doxazosin Mesylate*) Unknown Strength Tablet, 1 TAB PO DAILY, TAB 12/09/18 Atorvastatin* (Atorvastatin*) 40 Mg Tablet, 40 MG PO QHS, #30 TAB 12/09/18 Metoprolol Tartrate* (Lopressor*) 25 Mg Tab, 25 MG PO BID, #60 TAB 12/09/18 Nifedipine* (Nifedipine ER*) 90 Mg Tablet.er, 90 MG PO DAILY, TAB 12/09/18 Hydralazine Hcl* (Hydralazine Hcl*) 25 Mg Tab, 25 MG PO DAILY, #60 TAB 12/09/18 Discontinued Scripts Cephalexin* (Keflex*) 500 Mg Capsule, 500 MG PO BID for 7 Days, CAP Prov:JAMILAH VARNER MD 12/09/18 Allergies Allergies: Coded Allergies: Penicillins (Unverified Allergy, Unknown, RASHES, 12/22/18) cephalexin (Verified Allergy, Unknown, short of breath, 12/22/18) PMhx/Soc History of Surgery: Yes (CAROTID ARTERY SX) Anesthesia Reaction: No Hx Neurological Disorder: Yes (HX MINI STROKE (UNKNOWN DATE)) Hx Respiratory Disorders: No Hx Cardiac Disorders: Yes (HTN, STROKE) Hx Psychiatric Problems: No Hx Miscellaneous Medical Probl: Yes (ANXIETY) Hx Alcohol Use: No Hx Substance Use: No Hx Tobacco Use: No Smoking Status: Never smoker FmHx Family History: No diabetes Physical Exam Vitals Vital Signs Date Temp Pulse Resp B/P (MAP) Pulse Ox O2 O2 Flow FiO2 Time Delivery Rate 12/22/18 93 20 156/67 100 Nasal 2.0 05:23 (96) Cannula 12/22/18 93 30 159/63 100 Nasal 2.0 04:12 (95) Cannula 12/22/18 Nasal 2 02:55 Cannula 12/22/18 99.3 114 22 131/55 100 02:50 (80) Physical Exam General: Extremely anxious, talking in full sentences Head: Normocephalic, atraumatic. Eyes: Pupils equally reactive, EOM intact ENT: Moist mucous membranes Neck: Supple, no lymphadenopathy Respiratory: Clear bilaterally without evidence of respiratory distress Cardiovascular: Slight tachycardia, no murmurs, rubs, or gallops Abdominal: Soft, non-tender, non-distended, no peritoneal signs : Deferred MSK: No edema, no unilateral swelling, 5/5 strength Neurologic: Alert and oriented, moving all extremities, normal speech, no focal weakness, no cerebellar signs Skin: No rash Psych: Anxious Result Diagram: 12/22/18 0308 12/22/18 0308 Results 24 hrs Laboratory Tests Test 12/22/18 03:08 White Blood Count 11.2 10^3/ul Red Blood Count 3.05 10^6/ul Hemoglobin 9.3 g/dl Hematocrit 29.1 % Mean Corpuscular Volume 95.4 fl Mean Corpuscular Hemoglobin 30.5 pg Mean Corpuscular Hemoglobin Concent 32.0 g/dl Red Cell Distribution Width 14.2 % Platelet Count 467 10^3/UL Mean Platelet Volume 8.7 fl Immature Granulocytes % 4.700 % Neutrophils % 70.6 % Lymphocytes % 13.3 % Monocytes % 9.1 % Eosinophils % 1.3 % Basophils % 1.0 % Nucleated Red Blood Cells % 0.0 /100WBC Immature Granulocytes # 0.530 10^3/ul Neutrophils # 7.9 10^3/ul Lymphocytes # 1.5 10^3/ul Monocytes # 1.0 10^3/ul Eosinophils # 0.2 10^3/ul Basophils # 0.1 10^3/ul Nucleated Red Blood Cells # 0.0 10^3/ul Prothrombin Time 12.6 Sec Prothrombin Time Ratio 1.0 INR International Normalized Ratio 0.93 Activated Partial Thromboplast Time 27.6 Sec Sodium Level 134 mmol/L Potassium Level 6.1 mmol/L Chloride Level 103 mmol/L Carbon Dioxide Level 18 mmol/L Anion Gap 13 Blood Urea Nitrogen 45 mg/dl Creatinine 2.67 mg/dl Est Glomerular Filtrat Rate mL/min mL/min Glucose Level 190 mg/dl Calcium Level 9.6 mg/dl Troponin I 0.039 ng/ml Current Medications Medications Dose Sig/[place] Start Time Status Last (Trade) Ordered Route PRN Stop Time Admin Dose Reason Admin Sodium 1,000 ml @ Q1H STAT 12/22/18 DC 12/22/18 Chloride 1,000 mls/hr IV 02:51 03:15 12/22/18 03:50 Lorazepam 0.5 mg ONCE ONCE 12/22/18 DC 12/22/18 (Ativan) IV 03:00 03:15 12/22/18 03:01 IV Flush 10 ml STK-MED 12/22/18 DC (NS 10 ml) ONCE .ROUTE 02:59 12/22/18 03:00 Sodium 100 ml @ ud STK-MED 12/22/18 DC Chloride ONCE .ROUTE 02:59 12/22/18 03:00 Iodixanol 100 ml STK-MED 12/22/18 DC (Visipaque ONCE .ROUTE 02:59 Locm) 12/22/18 03:00 Sodium 30 gm ONCE STAT 12/22/18 Cancel Polystyrene PO 03:41 Sulfonate 12/22/18 03:42 (Kayexelate 15 Gm Kit (Powder+Sorbi ivet)) Sodium 50 ml ONCE STAT 12/22/18 DC 12/22/18 Bicarbonate IV 03:41 03:51 (Na Bicarb 12/22/18 03:43 8.4% Syg) Calcium 110 ml @ ONCE ONCE 12/22/18 DC 12/22/18 Gluconate 1 110 mls/hr IVPB 04:00 03:58 gm/Dextrose 12/22/18 04:59 Sodium 30 gm ONCE ONCE 12/22/18 DC 12/22/18 Polystyrene PO 03:50 06:12 Sulfonate 12/22/18 03:51 (Kayexalate) Sodium 1,000 ml @ [id number] IV 12/22/18 Chloride 60 mls/hr 05:46 12/22/18 22:25 IV Flush 3 ml PER 12/22/18 (NS 3 ml) PROTOCOL IV 06:00 Ondansetron 4 mg Q6H PRN 12/22/18 HCl (Zofran IV 06:00 Inj) NAUSEA/VOMITI NG 650 mg Q6H PRN 12/22/18 Acetaminophen PO .PAIN 1-3 06:00 (Tylenol OR TEMP Tab) Albuterol 2 puff Q4H RESP 12/22/18 (Ventolin THERAPY INH 05:45 Hfa) Clopidogrel 75 mg DAILY PO 12/22/18 Bisulfate 09:00 (plaVIX) Procedures/MDM EKG, MONITORS, & DIAGNOSTIC IMAGING: EKG: I reviewed and interpreted a 12-lead EKG. Rhythm: Sinus tachycardia ST Changes: No contiguous ST segment elevations T waves: No contiguous T wave inversions Impression: [No evidence of acute cardiac ischemia] Chest x-ray: I reviewed and interpreted a 1 view of the chest Mediastinum: No enlargement Cardiac silhouette: No cardiomegaly Airspace: Clear lung pardo bilaterally without evidence of pneumothorax Bones: No evidence of fracture LAB INTERPRETATION: I reviewed the laboratory testing and it shows acute renal insufficiency with hyperkalemia MEDICAL DECISION MAKING: The patient's shortness of breath seems very consistent with anxiety. The patient is very worked up and anxious. I have a lower clinical concern for pulmonary embolism however initially I ordered a CTPA put the patient's c reatinine is elevated. Given my low pretest probability for PE I do not believe CTPA is indicated. The patient can be worked up on an inpatient as needed if the symptoms do not improve. The patient shortness of breath improved with a small dose of benzodiazepine. However, the patient is also noted to have acute renal insufficiency with hyperkalemia. No EKG changes. Possibly secondary to mild dehydration. This is similar to recent hospitalization and the patient warrants repeat hospitalization for further investigation. ER COURSE: * Patient given anxiolysis with improved symptoms. * Patient treated with Kayexalate, bicarbonate, calcium. * The patient remains hemodynamically stable will be admitted for further management. CONSULTATION: [None] DISPOSITION PLAN: Telemetry Accepting care team and consultations: I discussed the current laboratory data, diagnostic imaging and emergency care provided. Admitting team: Dr. Matthews Admitting team indication: Insurance directed Departure Diagnosis: Primary Impression: Shortness of breath Additional Impressions: Anxiety Acute renal insufficiency Hyperkalemia Condition: Stable ERI ROBLEDO MD Dec 22, 2018 06:22
[2018-12-22] MEDS: CLOPIDOGREL 75 MG TAB PO SCH (09:00)
[2018-12-22] MEDS ORDERED: HYDROCODONE/APAP (5/325) TAB PO PRN (10:00)
[2018-12-22 13:22] VITALS: PULSE 91
[2018-12-22 13:31] VITALS: BP 178/75; PULSE 86; RESP 18
[2018-12-22] MEDS ORDERED: GLUCOSE GEL 15 GRAM TUBE BUCCAL PRN (14:00)
[2018-12-22] MEDS ORDERED: GLUCAGON 1 MG INJ IM PRN (14:00)
[2018-12-22] MEDS ORDERED: GLUCOSE GEL 15 GRAM TUBE PO PRN ×2 (14:00)
[2018-12-22] MEDS ORDERED: DEXTROSE 50% 50 ML SYRINGE IV PRN ×2 (14:00)
[2018-12-22] MEDS ORDERED: SODIUM CHLORIDE 0.45% 500 ML BAG IV* ONE (14:00)
[2018-12-22 14:11] VITALS: Ht 157.5 cm; Wt 84.0 kg
[2018-12-22 15:02] VITALS: BP 152/67; PULSE 101; RESP 18
[2018-12-22] MEDS ORDERED: LORAZEPAM 2 MG INJ IV PRN (16:00)
--- NOTE | 2018-12-22 16:00 | HP ---
Date/Time of Note Date/Time of Note DATE: 12/22/18 TIME: 15:55 Assessment/Plan VTE Prophylaxis Pharmacological prophylaxis: heparin Lines/Catheters IV Catheter Type (from [facility]): Peripheral IV Urinary Cath still in place: No Assessment/Plan Hospital Course 83-year-old female with CKD 3, diabetes type 2, CAD, status post carotid e ndarterectomy, and hypertension as well as anxiety and panic attacks who presents with episodes of panic and shortness of breath I again suspect that her symptoms are due to acute panic attacks for which we can continue to give benzodiazepines as needed. However we will do a thorough workup to rule out organic causes of shortness of breath. Her chest x-ray is clear so I doubt there is any CHF occurring. Certainly no wheezing on exam to suspect COPD. Her d-dimer is elevated and I would like to perform a CT angiogram however her creatinine is also elevated so we will pursue a VQ scan. Duplex is negative for DVT CAD: - Continue plavix Hypertension: - Continue home medications Anxiety: - Ativan PRN CKD III with ANGEL: - Gentle fluid challenge Anemia of CKD - Stable Arthritis of knee - stable, analgesics PRN PT/OT Discharge folloiwng workup Result Diagram: 12/22/18 0308 12/22/18 0308 Results 24hrs Laboratory Tests Test 12/22/18 03:08 12/22/18 08:57 White Blood Count 11.2 #H Red Blood Count 3.05 L Hemoglobin 9.3 L Hematocrit 29.1 L Mean Corpuscular Volume 95.4 Mean Corpuscular Hemoglobin 30.5 Mean Corpuscular Hemoglobin Concent 32.0 Red Cell Distribution Width 14.2 Platelet Count 467 H Mean Platelet Volume 8.7 Immature Granulocytes % 4.700 H Neutrophils % 70.6 Lymphocytes % 13.3 L Monocytes % 9.1 Eosinophils % 1.3 Basophils % 1.0 Nucleated Red Blood Cells % 0.0 Immature Granulocytes # 0.530 H Neutrophils # 7.9 H Lymphocytes # 1.5 Monocytes # 1.0 H Eosinophils # 0.2 Basophils # 0.1 Nucleated Red Blood Cells # 0.0 Prothrombin Time 12.6 Prothrombin Time Ratio 1.0 INR International Normalized Ratio 0.93 Activated Partial Thromboplast Time 27.6 D-Dimer 2065.43 H D-Dimer Comment Sodium Level 134 L Potassium Level 6.1 *H Chloride Level 103 Carbon Dioxide Level 18 L Anion Gap 13 Blood Urea Nitrogen 45 H Creatinine 2.67 H Est Glomerular Filtrat Rate mL/min Glucose Level 190 Calcium Level 9.6 Troponin I 0.039 0.052 Creatine Kinase 82 Creatine Kinase Index 2.5 Creatinine Kinase MB (Mass) 2.02 HPI/ROS Admit Date/Time Admit Date/Time Dec 22, 2018 at 05:48 Hx of Present Illness 83 yo female with CKD III, anemia, CAD, hypertension, DMII returns with anxiety and SOB Patient was discharged yesterday by me. She had been admitted for vague symp toms of nausea and found to be quite constipated. During her admission she had episodes of panic attacks during which she became tremulous very tearful and complained of shortness of breath. On numerous occasions I had to do deep breathing with exercises with her to try to calm down as well as administer Ativan. Apparently she went home yesterday and developed similar symptoms of acute panic with shortness of breath and return to the hospital. When I see her now she is very tearful saying she does not feel well feels like she cannot breathe. Her daughter is at the bedside who reports her mother has had lots of stress and anxiety lately. She believes the symptoms are psychosomatic. Citlaly arently this all started after she had a carotid endarterectomy a month ago and has not seemed to get back to herself since then ROS Constitutional: no complaints, improved Eyes: no complaints ENT: no complaints Respiratory: no complaints Cardiovascular: no complaints Gastrointestinal: no complaints Genitourinary: no complaints Musculoskeletal: no complaints Skin: no complaints Neurologic: no complaints Endocrine: no complaints Lymphatic: no complaints Psychological: no complaints, nl mood/affect Immunologic: no complaints PMH/Family/Social Past Medical History Medical History: coronary artery disease, diabetes, renal disease Medications Current Medications Sodium Chloride 1,000 ml @ 60 mls/hr [id number] IV Last administered on 12/22/18at 06:44; Admin Dose 60 MLS/HR; Start 12/22/18 at 05:46; Stop 12/22/18 at 22:25 IV Flush (NS 3 ml) 3 ml PER PROTOCOL IV ; Start 12/22/18 at 06:00 Ondansetron HCl (Zofran Inj) 4 mg Q6H PRN IV NAUSEA/VOMITING; Start 12/22/18 at 06:00 Acetaminophen (Tylenol Tab) 650 mg Q6H PRN PO .PAIN 1-3 OR TEMP; Start 12/22/18 at 06:00 Albuterol (Ventolin Hfa) 2 puff Q4H RESP THERAPY INH ; Start 12/22/18 at 05:45 Clopidogrel Bisulfate (plaVIX) 75 mg DAILY PO ; Start 12/22/18 at 09:00 Acetaminophen/ Hydrocodone Bitart ([place] (5/325)) 2 tab Q6H PRN PO .SEVERE PAIN 7-10; Start 12/22/18 at 10:00 Heparin Sodium (Porcine) (Heparin (5000 Units/1ml)) 5,000 unit Q12 SC ; Start 12/22/18 at 21:00 Duloxetine HCl (Cymbalta) 60 mg DAILY PO ; Start 12/23/18 at 09:00 Pantoprazole (Protonix Tab) 40 mg BID@0600,1800 PO ; Start 12/22/18 at 18:00 Ranolazine (Ranexa) 500 mg Q12 PO ; Start 12/22/18 at 21:00 Insulin Glargine (Lantus) 8 units DAILY@2000 SC ; Start 12/22/18 at 20:00 Insulin Aspart (Novolog Insulin Pen) NOVOLOG *MODERATE* ALGORITHM WITH MEALS BEDTIME SC ; Start 12/22/18 at 17:55 Miscellaneous Information 1 ea NOTE XX ; Start 12/22/18 at 14:00 Glucose (Glutose) 15 gm Q15M PRN PO DECREASED GLUCOSE; Start 12/22/18 at 14:00 Glucose (Glutose) 22.5 gm Q15M PRN PO DECREASED GLUCOSE; Start 12/22/18 at 14:00 Dextrose (D50w Syringe) 25 ml Q15M PRN IV DECREASED GLUCOSE; Start 12/22/18 at 14:00 Dextrose (D50w Syringe) 50 ml Q15M PRN IV DECREASED GLUCOSE; Start 12/22/18 at 14:00 Glucagon (Glucagen) 1 mg Q15M PRN IM DECREASED GLUCOSE; Start 12/22/18 at 14:00 Glucose (Glutose) 15 gm Q15M PRN BUCCAL DECREASED GLUCOSE; Start 12/22/18 at 14:00 Coded Allergies: Penicillins (Unverified Allergy, Unknown, RASHES, 12/22/18) cephalexin (Verified Allergy, Unknown, short of breath, 12/22/18) Past Surgical History Past Surgical Hx: no surgical history Family History Significant Family History: no pertinent family hx Social History Alcohol Use: none Smoking Status: Never smoker Drug Use: none Exam/Review of Systems Vital Signs Vitals Vital Signs Date Temp Pulse Resp B/P (MAP) Pulse Ox O2 O2 Flow FiO2 Time Delivery Rate 12/22/18 97.5 101 18 152/67 100 Nasal 15:02 (95) Cannula 12/22/18 2.0 13:00 Exam Constitutional: alert, oriented, well developed Psych: no complaints, nl mood/affect Head: normocephalic, atraumatic Eyes: nl conjunctiva, EOMI, nl lids, nl sclera, PERRL ENMT: nl external ears & nose, nl lips & teeth, nl nasal mucosa & septum Neck: supple, non-tender Respiratory: clear to auscultation, normal air movement Cardiovascular: regular rate and rhythm, nl pulses Gastrointestinal: soft, nl liver, spleen, non-tender Musculoskeletal: nl extremities to inspection Extremities: normal pulses Neurological: CRIS[employer] HE[employer] THERAPIST II-XII intact, nl mental status, nl speech, nl strength Skin: nl turgor; No rash or lesions Lymph: nl lymph nodes NANCI GUTIERREZ MD Dec 22, 2018 16:00
[2018-12-22 16:01] VITALS: PULSE 107
--- NOTE | 2018-12-22 16:56 | RADRPT ---
Echocardiogram Report Patient Name: DEMARCO DAVISPatient ID: [id number] : [id number] (83y 7m)Study Date: 12/22/2018 1:51:03 PM Gender: FAccession #: [id number] Tech: OllieBo ТАТЬЯНА Location: [facility] Ref.Physician: NANCI GUTIERREZ Height(Cm): BSA: Weight(Kg): Quality: AdequateAccount #: Procedures: Echocardiographic Report: Transthoracic echocardiogram with complete 2D, M-Mode, and doppler examination. Indications: Congestive Heart Failure. Measurements: 2D/M Mode Doppler Measurement Value Normal Range Measurement Value Normal Range LVIDd 2D 4.7 [ 3.8 - 5.2 ] cm AV Peak Martir 1.4 [ 100.0 - 170.0 ] cm/se c LVIDs 2D 3.0 [ 2.2 - 3.5 ] cm AV Peak PG 8.0 [ 2.0 - 9.0 ] mmHg LVPWd 2D 0.9 [ 0.6 - 0.9 ] cm LVOT Peak Martir 1.0 [ 70.0 - 110.0 ] cm/sec IVSd 2D 0.7 [ 0.6 - 0.9 ] cm LVOT Peak PG 4.0 [ 2.0 - 6.0 ] mmHg AoR Diam 2D 2.7 [ 2.3 - 3.1 ] cm MV E Peak Martir 1.3 [ 60.0 - 130.0 ] cm/sec EDV 2D 103.0 [ 46.0 - 106.0 ] ml MV A Peak Martir 0.4 [ 100.0 - 120.0 ] cm/se c ESV 2D 34.2 [ 14.0 - 42.0 ] ml MV E/A 3.6 [ 0.8 - 1.5 ] ratio EF 2D 66.8 [ 54.0 - 74.0 ] percent MV PHT 42.0 [ 20.0 - 100.0 ] msec LA Dimen 2D 2.6 [ 2.7 - 3.8 ] cm MV Decel Time 144 [ 104 - 258 ] msec MV Decel [place] 9 Lat E` Martir 0.1 [ 10.0 - 15.0 ] cm/sec Lateral E/E` 20.6 [ 1.0 - 2.0 ] ratio MV E/A 3.6 [ 0.8 - 1.5 ] ratio MVA PHT 5.2 [ 2.0 - 4.0 ] cm2 Findings: Left Ventricle: Normal left ventricular systolic function. Normal left ventricular cavity size. Normal left ventricular wall thickness. Ejection fraction is visually estimated at 55-60 %. Right Ventricle: Normal right ventricular size. Normal right ventricular systolic function. Left Atrium: The left atrium is normal in size. Right Atrium: The right atrium is normal in size. Atrial Septum: Normal atrial septum. Ventricular septum: Normal/intact ventricular septum. Mitral Valve: Normal appearance of the mitral valve. Trace mitral regurgitation. Aortic Valve: Normal appearance of the aortic valve. No aortic regurgitation. Tricuspid Valve: Normal appearance of the tricuspid valve. There is trace tricuspid regurgitation. Pulmonic Valve: Normal pulmonic valve appearance. No evidence of pulmonic regurgitation. Pericardium: Normal pericardium with no significant pericardial effusion. Aorta: Normal aortic root. IVC: Normal size and normal respiratory collapse consistent with normal right atrial pressure. Conclusions: Normal left ventricular systolic function. Normal left ventricular cavity size. Normal left ventricular wall thickness. Ejection fraction is visually estimated at 55-60 %. Normal appearance of the tricuspid valve. There is trace tricuspid regurgitation. Normal appearance of the mitral valve. Trace mitral regurgitation. Electronically Signed By: Ramírez Ching 2018-12-22 16:56:00 PDT
[2018-12-22] MEDS: INSULIN ASPART [NOVOLOG] 3 ML PEN SC SCH ×2 (17:03→20:25)
[2018-12-22] MEDS: PANTOPRAZOLE (EC) 40 MG TAB PO SCH (18:23)
[2018-12-22 20:00] VITALS: BP 145/67; PULSE 110; PULSE 112; RESP 20
[2018-12-22] MEDS ORDERED: INSULIN GLARGINE [LANTus] (100 UNITS/ML) SYG SC SCH (20:00)
[2018-12-22] MEDS: HEPARIN 5,000 UNIT/1 ML VIAL SC SCH (20:34)
[2018-12-22] MEDS: RANOLAZINE (SR) 500 MG TAB PO SCH (21:00)
[2018-12-23] VITALS (10 sets, daily range): BP systolic 130–167; BP diastolic 59–75; PULSE 93–114; RESP 18–20
[2018-12-23] MEDS: PANTOPRAZOLE (EC) 40 MG TAB PO SCH ×2 (06:43→17:28)
[2018-12-23] MEDS: INSULIN ASPART [NOVOLOG] 3 ML PEN SC SCH ×4 (07:55→20:43)
[2018-12-23] MEDS: CLOPIDOGREL 75 MG TAB PO SCH (08:45)
[2018-12-23] MEDS: RANOLAZINE (SR) 500 MG TAB PO SCH ×2 (08:45→20:35)
[2018-12-23] MEDS: DULOXETINE 30 MG CAP DR PO SCH (08:45)
[2018-12-23] MEDS: HEPARIN 5,000 UNIT/1 ML VIAL SC SCH ×2 (08:56→20:43)
--- NOTE | 2018-12-23 14:53 | DS ---
Date/Time of Note Date/Time of Note DATE: 12/23/18 TIME: 14:51 Discharge Summary Admission/Discharge Info Admit Date/Time Dec 22, 2018 at 05:48 Discharge Date/Time Discharge Diagnosis Anixety Shortenss of breath CKD III Anemia Patient Condition: Stable Hx of Present Illness 83 yo female with CKD III, anemia, CAD, hypertension, DMII returns with anxiety and SOB Patient was discharged yesterday by me. She had been admitted for vague symptoms of nausea and found to be quite constipated. During her admission she had episodes of panic attacks during which she became tremulous very tearful and complained of shortness of breath. On numerous occasions I had to do deep breathing with exercises with her to try to calm down as well as administer Ativan. Apparently she went home yesterday and developed similar symptoms of acute panic with shortness of breath and return to the hospital. When I see her now she is very tearful saying she does not feel well feels like she cannot johanny athe. Her daughter is at the bedside who reports her mother has had lots of stress and anxiety lately. She believes the symptoms are psychosomatic. Apparently this all started after she had a carotid endarterectomy a month ago and has not seemed to get back to herself since then Hospital Course 83-year-old female with CKD 3, diabetes type 2, CAD, status post carotid endarterectomy, and hypertension as well as anxiety and panic attacks who presents with episodes of panic and shortness of breath I again suspect that her symptoms are due to acute panic attacks for which we can continue to give benzodiazepines as needed. However we will do a thorough workup to rule out organic causes of shortness of breath. Her chest x-ray was clear so I doubt there is any CHF occurring. Certainly no wheezing on exam to suspect COPD. Her d-dimer was elevated but venous duplex was negative and V/Q scan was low probability. TTE showed normal cardiac function I discussed with the patient and her daughter than her symptoms are most likely psychiatric and she is safe for discharge and follow up with PMD Home Meds Active Scripts Albuterol Sulfate* (Ventolin HFA*) 18 Gm Hfa.aer.ad, 2 PUFF INHALATION Q4H, #1 INHALER Prov:JAMILAH VARNER MD 12/09/18 Acetaminophen* (Tylenol*) 325 Mg Tablet, 1 TAB PO Q6 PRN for PAIN AND OR ELEVATED TEMP, #20 TAB Prov:JAMILAH VARNER MD 12/09/18 Reported Medications [Tylenol Pm ] No Conflict Check, 2 TAB PO QHS 12/09/18 Duloxetine Hcl* (Cymbalta*) 60 Mg Capsule.dr, 60 MG PO DAILY, CAP 12/09/18 Pantoprazole* (Protonix*) 40 Mg Tablet.dr, 40 MG PO BID, TAB 12/09/18 Losartan Potassium* (Cozaar*) 100 Mg Tablet, 100 MG PO DAILY, #30 TAB 12/09/18 Ranolazine* (Ranexa*) 500 Mg Tab.sr.12h, 500 MG PO Q12, TAB 12/09/18 Clopidogrel Bisulfate* (Clopidogrel Bisulfate*) 75 Mg Tablet, 75 MG PO DAILY, #30 TAB 12/09/18 Pioglitazone Hcl* (Pioglitazone Hcl*) 30 Mg Tablet, 30 MG PO DAILY, TAB 12/09/18 Glimepiride* (Glimepiride*) 1 Mg Tablet, 1 MG PO WITH BREAKFAST, TAB 12/09/18 Discontinued Reported Medications Sulfamethoxazole/Trimethoprim* (Bactrim Ds* Tablet) 1 Each Tablet, 1 TAB PO BID, TAB started 12-14-18 for 7 days 12/18/18 Doxazosin Mesylate* (Doxazosin Mesylate*) Unknown Strength Tablet, 1 TAB PO DAILY, TAB 12/09/18 Atorvastatin* (Atorvastatin*) 40 Mg Tablet, 40 MG PO QHS, #30 TAB 12/09/18 Metoprolol Tartrate* (Lopressor*) 25 Mg Tab, 25 MG PO BID, #60 TAB 12/09/18 Nifedipine* (Nifedipine ER*) 90 Mg Tablet.er, 90 MG PO DAILY, TAB 12/09/18 Hydralazine Hcl* (Hydralazine Hcl*) 25 Mg Tab, 25 MG PO DAILY, #60 TAB 12/09/18 Discontinued Scripts Cephalexin* (Keflex*) 500 Mg Capsule, 500 MG PO BID for 7 Days, CAP Prov:JAMILAH VARNER MD 12/09/18 Primary Care Provider Not On Staff Doctor Pending Labs Laboratory Tests Test 12/22/18 16:58 12/22/18 20:16 12/23/18 06:04 12/23/18 07:36 Bedside 128 112 54 Glucose mg/dL (70-220) mg/dL (70-220) mg/dL (70-220) White Blood 7.9 Count 10^3/ul (4.8-1 0.8) Red Blood 2.47 Count 10^6/ul (4.20- 5.40) Hemoglobin 7.6 g/dl (12.0-16. 0) Hematocrit 24.1 % (37.0-47.0) Mean 97.6 Corpuscular fl (82.0-101.0 Volume ) Mean 30.8 Corpuscular pg (29.0-33.0) Hemoglobin Mean 31.5 Corpuscular g/dl (32.0-37. Hemoglobin Conc 0) ent Red Cell 14.6 Distribution % (11.5-14.5) Width Platelet Count 381 10^3/UL (140-4 15) Mean Platelet 9.1 Volume fl (7.4-10.4) Immature 3.700 Granulocytes % % (0.001-0.429 ) Neutrophils % 66.0 % (39.0-77.0) Lymphocytes % 17.1 % (15.0-51.0) Monocytes % 9.7 % (0.0-11.0) Eosinophils % 2.5 % (0.0-7.0) Basophils % 1.0 % (0.0-2.0) Nucleated Red 0.0 Blood Cells % /100WBC (0.0-0 .0) Immature 0.290 Granulocytes # 10^3/ul (0.0-0 .031) Neutrophils # 5.2 10^3/ul (1.6-7 .5) Lymphocytes # 1.4 10^3/ul (0.8-2 .9) Monocytes # 0.8 10^3/ul (0.3-0 .9) Eosinophils # 0.2 10^3/ul (0.0-0 .5) Basophils # 0.1 10^3/ul (0.0-0 .1) Nucleated Red 0.0 Blood Cells # 10^3/ul (0.0-0 .0) Sodium Level 140 mmol/L (135-14 4) Potassium 4.0 Level mmol/L (3.5-5. 1) Chloride Level 107 mmol/L (97-110 ) Carbon Dioxide 21 Level mmol/L (21-31) Anion Gap 12 (5-13) Blood Urea 36 Nitrogen mg/dl (7-20) Creatinine 1.95 mg/dl (0.44-1. 00) Est Glomerular mL/min (>60) Filtrat Rate mL/min Glucose Level 49 mg/dl (70-220) Hemoglobin A1c 6.6 % (0-5.9) Calcium Level 8.8 mg/dl (8.4-10. 2) Total 0.6 Bilirubin mg/dl (0.2-1.3 ) Direct 0.00 Bilirubin mg/dl (0.00-0. 20) Indirect 0.6 Bilirubin mg/dl (0-1.1) Aspartate Amino 25 Transf (AST/SGO IU/L (15-46) T) Alanine 18 Aminotransferas IU/L (13-69) e (ALT/SGPT) Alkaline 71 Phosphatase IU/L (42-121) Total Protein 6.0 g/dl (6.1-8.1) Albumin 3.0 g/dl (3.3-4.9) Globulin 3.00 g/dl (1.3-3.2) Albumin/Globuli 1.00 n Ratio Test 12/23/18 08:13 12/23/18 08:43 Bedside 85 96 Glucose mg/dL (70-220) mg/dL (70-220) NANCI GUTIERREZ MD Dec 23, 2018 14:53
[2018-12-24] VITALS (11 sets, daily range): BP systolic 176–198; BP diastolic 72–91; PULSE 80–102; RESP 16–20
[2018-12-24] MEDS ORDERED: LABETALOL HCL 20MG INJ IV ONE (03:30)
[2018-12-24] MEDS ORDERED: LABETALOL HCL 20MG INJ IV SCH (03:54)
[2018-12-24] MEDS: PANTOPRAZOLE (EC) 40 MG TAB PO SCH ×2 (06:24→17:39)
[2018-12-24] MEDS: INSULIN ASPART [NOVOLOG] 3 ML PEN SC SCH ×4 (07:55→20:39)
[2018-12-24] MEDS: DULOXETINE 30 MG CAP DR PO SCH (09:05)
[2018-12-24] MEDS: RANOLAZINE (SR) 500 MG TAB PO SCH ×2 (09:05→20:34)
[2018-12-24] MEDS: CLOPIDOGREL 75 MG TAB PO SCH (09:05)
[2018-12-24] MEDS: HEPARIN 5,000 UNIT/1 ML VIAL SC SCH ×2 (09:16→20:39)
[2018-12-24] MEDS: LOSARTAN 50 MG TAB PO SCH (13:21)
[2018-12-24] MEDS ORDERED: METO5TAB58 PO (15:27)
--- NOTE | 2018-12-24 15:28 | PDOCDIS ---
Discharge Instructions DIAGNOSIS Discharge Diagnosis Anixety Shortenss of breath CKD III Anemia CONDITION [id number] Patient Condition: [id number] Good HOME CARE INSTRUCTIONS: [id number] Special Diet: Lneus2l Diabetic ACTIVITY: [id number] Activity Restrictions: [id number] No Restrictions FOLLOW UP/APPOINTMENTS Follow-up Plan FOLLOW UP WITH YOUR PRIMARY CARE PHYSICIAN IN 1-2 WEEKS EDITH MANUEL Dec 24, 2018 15:28
[2018-12-25] VITALS (11 sets, daily range): BP systolic 136–206; BP diastolic 63–77; PULSE 69–97; RESP 18–20
[2018-12-25] MEDS ORDERED: hydrALAzine 20 MG INJ IV ONE (00:30)
[2018-12-25] MEDS ORDERED: ALBUTEROL/IPRATROPIUM (NEB) 3 ML AMP HHN PRN (02:00)
[2018-12-25] MEDS: PANTOPRAZOLE (EC) 40 MG TAB PO SCH ×2 (05:47→17:46)
[2018-12-25] MEDS: INSULIN ASPART [NOVOLOG] 3 ML PEN SC SCH ×3 (07:58→17:42)
[2018-12-25] MEDS ORDERED: AMLODIPINE 5 MG TAB PO SCH (09:00)
[2018-12-25] MEDS: RANOLAZINE (SR) 500 MG TAB PO SCH (09:28)
[2018-12-25] MEDS: CLOPIDOGREL 75 MG TAB PO SCH (09:29)
[2018-12-25] MEDS: LOSARTAN 50 MG TAB PO SCH (09:29)
[2018-12-25] MEDS: DULOXETINE 30 MG CAP DR PO SCH (09:29)
[2018-12-25] MEDS: HEPARIN 5,000 UNIT/1 ML VIAL SC SCH (09:34)
[2018-12-25] MEDS ORDERED: AMLO-145 PO (11:07)
--- NOTE | 2018-12-25 15:39 | DS ---
Date/Time of Note Date/Time of Note DATE: 12/25/18 TIME: 15:35 Discharge Summary Admission/Discharge Info Admit Date/Time Dec 22, 2018 at 05:48 Discharge Date/Time December 25, 2018 Discharge Diagnosis Anxiety with panic attacks Being exercises encouraged Shortness of breath secondary to panic attack No objective findings of respiratory distress Nausea likely secondary to mild gastroparesis from anxiety DC with Reglan Hypertension BP has been difficult to control, have added Norvasc to home regimen Continue losartan CKD III with anemia Outpatient follow-up Carotid atherosclerosis status post CEA of the right carotid Debility since CEA Home health and caregiver to be continued Patient Condition: Good Hospital Course Patient is an 83-year-old female with a history of atherosclerosis, hypertension, CKD, CVA who presented with shortness of breath secondary to panic attacks. Chest x-ray, VQ scan and lower extremity ultrasound were all negative for acute findings. Patient had no evidence of hypoxia. Patient blood pressure was elevated and required Norvasc in addition to home Cozaar. Patient also r eported nausea likely secondary to mild gastroparesis but was tolerating p.o. diet and was having bowel movements. Patient was stable for DC to home with home health and caregiver. On the day of discharge patient's vitals, labs and physical exam are stable. Home Meds Active Scripts Amlodipine Besylate* (Amlodipine Besylate*) 5 Mg Tablet, 5 MG PO DAILY, #60 TAB Prov:EDITH MANUEL 12/25/18 Metoclopramide* (Reglan*) 5 Mg Tablet, 5 MG PO Q6H PRN for NAUSEA AND OR VO MITING, #30 TAB Prov:EDITH MANUEL 12/24/18 Albuterol Sulfate* (Ventolin HFA*) 18 Gm Hfa.aer.ad, 2 PUFF INHALATION Q4H, #1 INHALER Prov:JAMILAH VARNER MD 12/09/18 Acetaminophen* (Tylenol*) 325 Mg Tablet, 1 TAB PO Q6 PRN for PAIN AND OR ELEVATED TEMP, #20 TAB Prov:JAMILAH VARNER MD 12/09/18 Reported Medications [Tylenol Pm ] No Conflict Check, 2 TAB PO QHS 12/09/18 Duloxetine Hcl* (Cymbalta*) 60 Mg Capsule.dr, 60 MG PO DAILY, CAP 12/09/18 Pantoprazole* (Protonix*) 40 Mg Tablet.dr, 40 MG PO BID, TAB 12/09/18 Losartan Potassium* (Cozaar*) 100 Mg Tablet, 100 MG PO DAILY, #30 TAB 12/09/18 Ranolazine* (Ranexa*) 500 Mg Tab.sr.12h, 500 MG PO Q12, TAB 12/09/18 Clopidogrel Bisulfate* (Clopidogrel Bisulfate*) 75 Mg Tablet, 75 MG PO DAILY, #30 TAB 12/09/18 Pioglitazone Hcl* (Pioglitazone Hcl*) 30 Mg Tablet, 30 MG PO DAILY, TAB 12/09/18 Glimepiride* (Glimepiride*) 1 Mg Tablet, 1 MG PO WITH BREAKFAST, TAB 12/09/18 Discontinued Reported Medications Sulfamethoxazole/Trimethoprim* (Bactrim Ds* Tablet) 1 Each Tablet, 1 TAB PO BID, TAB started 12-14-18 for 7 days 12/18/18 Doxazosin Mesylate* (Doxazosin Mesylate*) Unknown Strength Tablet, 1 TAB PO D AILY, TAB 12/09/18 Atorvastatin* (Atorvastatin*) 40 Mg Tablet, 40 MG PO QHS, #30 TAB 12/09/18 Metoprolol Tartrate* (Lopressor*) 25 Mg Tab, 25 MG PO BID, #60 TAB 12/09/18 Nifedipine* (Nifedipine ER*) 90 Mg Tablet.er, 90 MG PO DAILY, TAB 12/09/18 Hydralazine Hcl* (Hydralazine Hcl*) 25 Mg Tab, 25 MG PO DAILY, #60 TAB 12/09/18 Discontinued Scripts Cephalexin* (Keflex*) 500 Mg Capsule, 500 MG PO BID for 7 Days, CAP Prov:JAMILAH VARNER MD 12/09/18 Follow-up Plan FOLLOW UP WITH YOUR PRIMARY CARE PHYSICIAN IN 1-2 WEEKS Primary Care Provider Not On Staff Doctor Time spent on discharge: > 30 minutes EDITH MANUEL Dec 25, 2018 15:39
--- NOTE | 2018-12-25 15:41 | PN ---
Date/Time of Note Date/Time of Note DATE: 12/24/18 TIME: 15:39 Assessment/Plan VTE Prophylaxis Risk score (from Nsg)>0 risk: 4 Pharmacological prophylaxis: heparin Lines/Catheters IV Catheter Type (from Nrsg): Saline Lock Urinary Cath still in place: No Assessment/Plan Hospital Course Panic attacks Breathing exercises Nausea likely secondary to mild gastroparesis Hypertension Resume home Cozaar and add Norvasc, clonidine as needed CKD 3 Atherosclerosis status post CEA on the right carotid Continue meds Debility secondary to comorbidities Home health Result Diagram: 12/24/1823 12/24/1823 Results 24hrs Laboratory Tests Test 12/24/18 17:16 12/24/18 20:29 12/25/18 02:25 12/25/18 07:50 Bedside Glucose 164 260 H 195 163 Test 12/25/18 12:17 Bedside Glucose 194 Subjective 24 Hr Interval Summary Free Text/Dictation Late entry for 12/24/2018 Gastrointestinal: nausea Exam/Review of Systems Exam Vitals Vital Signs Date Temp Pulse Resp B/P (MAP) Pulse Ox O2 O2 Flow FiO2 Time Delivery Rate 12/25/18 97.8 76 18 180/77 100 Nasal 15:33 (111) Cannula 12/25/18 2.0 08:25 Intake and Output 12/24/18 12/24/18 12/25/18 1515:00 23:00 07:00 IntakeIntake Total 940 ml 120 ml BalanceBalance 940 ml 120 ml Constitutional: alert, oriented Respiratory: clear to auscultation Cardiovascular: regular rate and rhythm Gastrointestinal: soft; No distended Musculoskeletal: nl extremities to inspection Results Results 24hrs Laboratory Tests Test 12/24/18 17:16 12/24/18 20:29 12/25/18 02:25 12/25/18 07:50 Bedside Glucose 164 260 H 195 163 Test 12/25/18 12:17 Bedside Glucose 194 Medications Medication Current Medications IV Flush (NS 3 ml) 3 ml PER PROTOCOL IV ; Start 12/22/18 at 06:00 Ondansetron HCl (Zofran Inj) 4 mg Q6H PRN IV NAUSEA/VOMITING; Start 12/22/18 at 06:00 Acetaminophen (Tylenol Tab) 650 mg Q6H PRN PO .PAIN 1-3 OR TEMP Last administered on 12/24/18at 04:13; Admin Dose 650 MG; Start 12/22/18 at 06:00 Albuterol (Ventolin Hfa) 2 puff Q4H RESP THERAPY INH ; Start 12/22/18 at 05:45 Clopidogrel Bisulfate (plaVIX) 75 mg DAILY PO Last administered on 12/25/18 09:29; Admin Dose 75 MG; Start 12/22/18 at 09:00 Acetaminophen/ Hydrocodone Bitart ([place] (5/325)) 2 tab Q6H PRN PO .SEVERE PAIN 7-10; Start 12/22/18 at 10:00 Heparin Sodium (Porcine) (Heparin (5000 Units/1ml)) 5,000 unit Q12 SC Last ad ministered on 12/25/18 09:34; Admin Dose 5,000 UNIT; Start 12/22/18 at 21:00 Duloxetine HCl (Cymbalta) 60 mg DAILY PO Last administered on 12/25/18 09:29; Admin Dose 60 MG; Start 12/23/18 at 09:00 Pantoprazole (Protonix Tab) 40 mg BID@0600,1800 PO Last administered on 12/25/18 05:47; Admin Dose 40 MG; Start 12/22/18 at 18:00 Ranolazine (Ranexa) 500 mg Q12 PO Last administered on 12/25/18 09:28; Admin Dose 500 MG; Start 12/22/18 at 21:00 Insulin Aspart (Novolog Insulin Pen) NOVOLOG *MODERATE* ALGORITHM WITH MEALS BEDTIME SC Last administered on 12/25/18 12:29; Admin Dose 4 UNIT; Start 12/22/18 at 17:55 Miscellaneous Information 1 ea NOTE XX ; Start 12/22/18 at 14:00 Glucose (Glutose) 15 gm Q15M PRN PO DECREASED GLUCOSE; Start 12/22/18 at 14:00 Glucose (Glutose) 22.5 gm Q15M PRN PO DECREASED GLUCOSE; Start 12/22/18 at 14:00 Dextrose (D50w Syringe) 25 ml Q15M PRN IV DECREASED GLUCOSE; Start 12/22/18 at 14:00 Dextrose (D50w Syringe) 50 ml Q15M PRN IV DECREASED GLUCOSE; Start 12/22/18 at 14:00 Glucagon (Glucagen) 1 mg Q15M PRN IM DECREASED GLUCOSE; Start 12/22/18 at 14:00 Glucose (Glutose) 15 gm Q15M PRN BUCCAL DECREASED GLUCOSE; Start 12/22/18 at 14:00 Lorazepam (Ativan) 1 mg Q8H PRN IV anxiety Last administered on 12/25/18at 02:55; Admin Dose 1 MG; Start 12/22/18 at 16:00 Losartan Potassium (Cozaar) 100 mg DAILY PO Last administered on 12/25/18at 09:29; Admin Dose 100 MG; Start 12/24/18 at 12:00 Amlodipine Besylate (Norvasc) 5 mg DAILY PO Last administered on 12/25/18 09:28; Admin Dose 5 MG; Start 12/25/18 at 09:00 Albuterol/ Ipratropium (Duoneb) 3 ml Q4H RESP THERAPY PRN HHN SHORTNESS OF BREATH Last administered on 12/25/18at 02:36; Admin Dose 3 ML; Start 12/25/18 at 02:00 EDITH MANUEL Dec 25, 2018 15:41
== END 2018-12-25 18:14 | disposition home health service (06) | DRG 880 ==
LOC: E/R 02:47 → TEL 05:48
PROVIDERS: ADMIT Family Medicine; ATTEND Internal Medicine
DX: F41.0 Panic disorder [episodic paroxysmal anxiety] (principal); N17.9 Acute kidney failure, unspecified; I12.9 Hypertensive chronic kidney disease with stage 1 through stage 4 chronic kidney disease, or unspecified chronic kidney disease; N18.3 Chronic kidney disease, stage 3 (moderate); I25.10 Atherosclerotic heart disease of native coronary artery without angina pectoris; Z79.02 Long term (current) use of antithrombotics/antiplatelets; D63.1 Anemia in chronic kidney disease; M17.10 Unilateral primary osteoarthritis, unspecified knee; K31.84 Gastroparesis; I65.29 Occlusion and stenosis of unspecified carotid artery; Z86.73 Personal history of transient ischemic attack (TIA), and cerebral infarction without residual deficits
CPT/HCPCS: 36415; 71045; 78582; 80048; 80053; 82550; 82553; 82962; 83036; 84484; 85025; 85378; 85610; 85730; 93005; 93306; 93970; 94664; 96374; 96375; 97161; A9540; J0360; J0610; J1644; J1815; J2060; J7030; Q9967